=== PATIENT | female | born 1950 | race Caucasian/White ===

== ENCOUNTER 2024-09-04 12:57 | Outpatient (CLI) | payer MEDICARE, SELFPAY ==
--- OUTSIDE RECORDS SUMMARY | 2021-10-27 11:09 | XMS_ITS | Continuity of Care Document ---
Author Organization [facility] Address [address] [facility] [address] [place] [address] Phone Care Team Providers Care Development Manager Name Role Phone Misael Corea DO Unavailable Unavailable Advance Directives Directive Yes / No Effective Date File Name No Information Encounters Encounter Description Practice Location Reason(s) For Visit Diagnoses Date Provider Providers Copied on Encounter [facility], [address], [place], [place], [id number], [place] tel:[phone] /[facility] No Information 2 Anmol Gallegoon. [address] [facility], [address], [place], [place], [id number] , [place]. tel:[phone] Family History Family Member Type Diagnosis Age At Onset No Information Payers Payer name Insurance type Covered constitution party ID Authoriza tion(s) No Information Social History Type Description Quantity Date Captured Comments Sex Female Smoking Status No Information Chief Complaint And Reason For Visit No Information Reason For Referral Reason For Referral No Information History Of Present Illness Encounter Date Complaint History Of Prese nt Illness No Information Functional Status Date Functional Assessmen t No Information Instructions Date Instruction Additional Infor mation No Information Assessments Type Assessment Date No Information Patient Care Teams Name Effective Dates (start - stop) Status Members No Information
--- OUTSIDE RECORDS SUMMARY | 2022-02-21 08:00 | XMS_ITS | Continuity of Care Document ---
Author Organization [facility], [facility] Address [address] [place] [address] Phone Care Team Providers Care Bag Filler Name Role Phone Clarence WATKINS, PhD, Jamie Unavailable Unavailable Advance Directives Directive Yes / No Effective Date File Name No Information Encounters Encounter Description Practice Location Reason(s) For Visit Diagnoses Date Provider Providers Copied on Encounter [facility], [facility], [address] [place] [address], [id number], [place] tel:[phone] [facility] No Information 3 Clarence Ayala. [facility], [facility], [address] [place] [address], [id number], [place]. tel:[phone] Family History Family Member Type Diagnosis Age At Onset No Information Payers Payer name Insurance type Covered alliance party ID Authoriza tion(s) No Information Social [...]
--- OUTSIDE RECORDS SUMMARY | 2023-02-21 09:00 | XMS_ITS | Continuity of Care Document ---
Author Organization [facility] Address [address] [facility] [address] [place] [phone] Phone Care Team Providers Care Electrical Prospecting Supervisor Name Role Phone Sami Batista MD Unavailable [...] Refraction SCODI-Retina Stereo Fundus Photos No Charge ALTERATION HAND Moderate MDM Advance Directives Directive Yes / No Effective Date File Name No Information Encounters Encounter Description Practice Location Reason(s) For Visit Diagnoses Date Provider Providers Copied on Encounter EP Low Moderate MDM [facility] [address], [id number], tel:[phone] [place] Cataract OU (chief complaint) Mixed type age-related cataract, right eye Lester Gallardo. [address] [place] [address], [id number], [place]. tel:[phone] [facility] , [address] [place] [address], [id number], tel:[phone] [place] cataract follow up (chief complaint) Mixed type age-related cataract, right eyeMixed type age-related cataract, left eye Lester Gallardo. [address] [place] [address], [id number], [place]. tel:[phone] Referring Provider: Sami Rush, [address] [place] [address], [id number] . tel:[phone] ALTERATION HAND Moderate MDM [facility] [address], [id number], [place] tel:[phone] [place] Cataract Evaluation (chief complaint) Mixed type age-related cataract, both eyes Lester Gallardo. [address] [place] [address], [id number], [place]. tel:[phone] Referring Provider: Sami Rush, [address] [place] [address], [id number] . tel:[phone] Family History Family Member Type Diagnosis Age At Onset Mother Problem cataract Payers Payer name Insurance type Covered republican ID Authoriza tion(s) No Information Social History [...] t Extraction OD with Dr. Batista at [facility]. Related to Mixed type age-related cataract, right eye Impression/Plan Related to Mixed type age-related cataract, right eye Recommended Cataract Sx OD 1st, OS 2nd with Dr. Batista at [facility]. Related to Mixed type age-related cataract, both [...]
--- OUTSIDE RECORDS SUMMARY | 2024-05-18 13:15 | XMS_ITS ---
Author Organization [facility] Address [address] [place] [address] Care Team Providers Care Silk Crepe Machine Operator Name Role Phone PCP, Does Not Have a Primary Care Provider Unava ilable _Gibran Hartman Unavailable REASON FOR VISIT RASH Encounters Encounter Location Date Provider Diagnosis [facility] Gibran [address] [place] [address] 05/18/2024 Gibran _[facility] PLAN OF TREATMENT No Information
--- OUTSIDE RECORDS SUMMARY | 2024-09-08 13:05 | XMS_ITS | Patient Health Record ---
Author Organization [facility] Address [address] [place] [address] Care Team Providers Care Assistant Site Manager Name Role Phone PCP, Does Not Have a Primary Care Provider Unava ilable _Gibran Hartman Unavailable REASON FOR REFERRAL No Information Encounters Encounter Location Date Provider Diagnosis [facility] [address] [facility] [address] [place] [address] 05/18/2024 [facility] PLAN OF TREATMENT No Information Insurance Providers Payer Name Payer Address Payer Phone Subscriber Number Group Number Insured Name Patient Relationship to Insured Coverage Start Date Coverage End Date MEDICARE [place] [address] [place] [phone] [id number] NATHANIEL PÉREZ Self - patient is the insured
--- OUTSIDE RECORDS SUMMARY | 2024-09-08 13:05 | XMS_ITS | Data Portability ---
Author Organization [place] - [facility] Address [address] [place] [address] Assessment No assessment recorded. Plan of Treatment Reminders Order Date Submit Date Provider Last Modified By Organization Details Last Modified Time Details Appointments None recorded. Lab None recorded. Referral physical therapy back referral 2019 JAVON Not available 1 05:01:06 Procedures None recorded. Surgeries None recorded. Imaging XR, lumbar spine 2019 JAVON Main Office, [address], [place], [address], 0 12:51:30 MRI, lumbar spine, w/o contrast 2019 JAVON Not available 0 11:17:42 Medication Orders naproxen 500 mg tablet 2019 ATHENAFAX Not available 0 12:35:50 Patient TargetsNo targets recorded. Patient Instructions Encounter Date Encounter Id Patient Instructions Last Modified By Organization Details Last Modified Time 12/11/2019 [id number] spondylolysis an d spondylolisthesis: exercises [email or web address] Not available 12/11/2019 12:33:16 Appropriate x-ra ys taken today do not reveal any evidence of fracture or lytic lesion. Spondylotic changes and disc space narrowing is noted. Grade I-II L4-5 stable spondylolisthesis noted. Calcified abdominal aorta noted on the imaging field. Evidence of prior abdominal surgery noted on the imaging field. The patient will likely benefit from activity modification as tolerated. They may find benefit from diligent icing for 20 minutes every 4 to 6 hours for the first 48 hours of acute symptomatology. Otherwise they may consider moist heat to the affected area to try to help reduce muscle spasm and stiffness. The patient is to contact the office and present to the emergency room immediately for any complaints of progressive weakness or bowel/bladder changes. The patient was advised to proceed with an MRI scan of the appropriate region for further diagnostic purposes. Lifestyle modification as it relates to spinal health is of critical importance. This consists of maintaining proper/ideal body weight and blood pressure, smoking cessation, avoiding prolonged sitting throughout the day, and utilizing proper body mechanics/movement patterns with bending, lifting, twisting, and all activities of daily living. The patient should have regular follow up with their primary care physician to monitor all critical aspects of their overall health and wellness such as blood pressure, body weight and body mass index, laboratory markers as needed, and preventive screening measures as directed by their primary care provider. The patient was instructed today on proper home exercises and ergonomic techniques which will hopefully be of value to them. The patient verbalizes understanding of this. Possible side effects with prescribed anti-inflammatory medication include GI upset and ulcer formation, renal damage, rash, elevated cardiovascular risk, organ damage, etc. Discontinue and advise the office if side effect develops. The patient will continue to obey and adhere to all local, state, and federal guidelines regarding the current Covid-19 pandemic, and verbalizes understanding of the treatment and rehabilitation plan and states that they will comply. Follow up in 1-2 weeks or sooner if any new problems or complaints. [email or web address] Not available 12/11/2019 12:33:14 12/29/2019 [id number] lumbar spinal stenosis: care instructions mfishman Not available 12/29/2019 15:40:26 herniated disc: care instructions mfishman Not available 12/29/2019 15:40:26 herniated disc: exercises mfishman Not available 12/29/2019 15:40:26 spondylolysis an d spondylolisthesis: exercises mfishman Not available 12/29/2019 15:40:26 The patient's MR I has been reviewed and discussed in detail. The patient verbalizes understanding of the findings and all questions regarding the results have been answered to the patient's satisfaction. The patient was instructed to follow up with their primary care physician in regards to the abnormal non spinal related finding as noted on their radiologic films for further workup and treatment as needed. The patient verbalizes understanding of this and states that they will comply. The patient will likely benefit from activity modification as tolerated. They may find benefit from diligent icing for 20 minutes every 4 to 6 hours for the first 48 hours of acute symptomatology. Otherwise they may consider moist heat to the affected area to try to help reduce muscle spasm and stiffness. The patient is to contact the office and present to the emergency room immediately for any complaints of progressive weakness or bowel/bladder changes. Generally speaking, reasonable treatment options would include doing nothing/observation, medication, physical therapy, injections, or surgery. I have advised for the patient to comply with a comprehensive physical therapy program for stretching and flexibility training, core strengthening, spinal stabilization, appropriate modalities, and teaching of proper home exercises. The patient was instructed today on proper home exercises and ergonomic techniques which will hopefully be of value to them. The patient verbalizes understanding of this. The patient will continue to obey and adhere to all local, state, and federal guidelines regarding the current Covid-19 pandemic, and verbalizes understanding of the treatment and rehabilitation plan and states that they will comply. I have asked the patient to monitor their symptoms and return to the office after they have completed physical therapy or sooner if any new problems or complaints. [email or web address] Not available 12/29/2019 15:40:00 Reason for Referral Referring Physician: Mook gillespie, [facility] Encounter Date: 12/29/2019 Results Created Date Observation Date Name Description Value Unit Range Abnormal Flag Note LastModifiedBy Organization Detail LastModifiedTime 12/19/19 20 12/18/2019 MRI, lumba r spine , w/o contr ast No observ ation record ed. [email or web address] [address] [facility] [address], [place], [address], 12/25/2019 13:41:46 Result Notes None recorded. Problems Name Problem SNOMED Code Status Onset Date Resolution Date Notes Provider Name and Address Organization Details Recorded Time Spondylolisthe sis 562734677 Active 2019 Mook Lang, [address], [place], [address] , [facility] 0 10:03:24 Prolapsed lumbar intervertebral disc 082055182 Active 2019 Mook Lang, DO [address] [place] [address], [phone], [facility] 0 10:05:05 Spinal stenosis of lumbar region 00395827 Active 2019 Mook Lang, DO [address] [place] [address], [phone], [facility] 0 10:05:07 Problem Notes None recorded. Medical Equipment None Reported. Allergies No known drug allergies Medications Name Sig Start Date Stop Date Status Note LastModified by Organization Details LastModified Time doxycycline hyclate 100 mg capsule TK ONE C PO Q 12 H FOR 10 DAYS active Not Available Not Available No t Available ketoconazole 2 % shampoo active Not Available Not Available Not Available cephalexin 250 mg capsule TK 1 C PO QID FOR 10 DAYS active Not Available Not Available No t Available prednisone 20 mg tablet TK 2 TS PO QD FOR 5 DAYS active Not Available Not Available No t Available sulfamethoxaz ole 800 mg-trimethopr im 160 mg tablet TAKE ONE TABLET BY MOUTH EVERY 12 HOURS active Not Available Not Available No t Available triamcinolone acetonide 0.1 % topical cream APPLY A THIN LAYER TO THE AFFECTED AREA(S) TOPICALLY TWO TIMES A DAY active Not Available Not Available No t Available naproxen 500 mg tablet Take 1 tablet twice a day by oral route as needed for 30 days. 2019 active Not Available Not Available Not Avai lable Vitals Date Recorded Body height Body weight Heart rate Systolic And Diastolic Provider Name and Address Organization Details Last Updated DateTime 12/11/2019 160.02 cm 03380.32 g 90 /min 143/95 mm[Hg] Mook Lang, [address] [place] [address], [phone] [place] [address] [facility] 12/11/2019 12:23:30 Date Recorded Body height Body temperature Body weight Provider Name and Address Organization Details Last Updated DateTime 12/29/2019 160.02 cm 96.4 [degF] 29726.32 g Mook Lang, [address] [place] [address], [phone], [facility] 12/29/2019 15:28:32 Social History Question Answer Notes LastModified by Organizat ion Details LastModified Time Tobacco Smoking Status Never Smoker Mook CalixQueenie Lang, DO [address] [facility], [place], [address], [facility] - [facility] 12/11/2019 12:22:59 Which Illicit Or Recreational Drugs Have You Used? None Information not available 12/11/2019 What Was The Date Of Your Most Recent Tobacco Screening? 12/11/2019 Information not available 12/11/2019 Sex: Unknown Functional Status Question Answer Note LastModified by Organization D etails LastModified Time What is your level of alcohol consumption? None Information not available 12/11/2019 Are you currently employed? Yes Information not available 12/11/2019 Are you able to care for yourself independently? Yes Information not available 12/11/2019 Mental Status None recorded. Family History Relationship Description Onset Age of this Age Resolved Age Notes LastModified by Organization Details LastModified Time Father No current problems or disability [email or web address] Not available 12/10 12:22:57 Mother No current problems or disability [email or web address] Not available 12/10 12:22:57 Medical History No medical history recorded. Gynecological HistoryNo gynecological history recorded. Obstetrics History GPAL:G 0 P 0 0 0 0 Past Encounters Encounter ID Performer Location Encounter Start Date Encounter Closed Date Diagnosis/Indication Diagnosis SNOMED-CT Code Diagnosis ICD10 Code Diagnosis Note [id number] Mook Lang, DO MAIN OFFICE [address] [place] [address] 12/11/2019 10:51:52 12/11/2019 14:51:55 Degeneration of lumbar intervertebral disc 35873914 M51.36 Lumbar spondylosis 99329 0009 M47.896 Spondylolisthesis 736735 003 M43.16 [id number] Mook iFfiQueenie Lang DO MAIN OFFICE [address] [place] [address] 12/29/2019 15:23:56 12/30/2019 09:41:16 Degeneration of lumbar intervertebral disc 66388604 M51.36 Lumbar spondylosis 61794 0009 M47.896 Spondylolisthesis 874731 003 M43.16 Prolapsed lumbar intervertebral disc 382473219 M51.26 Spinal irma nosis of lumbar region 71133065 M48.061 Health Concerns Section Related Observation LastModified by Organization Detai ls LastModified Time None Recorded Concern Status LastModified by Organization Details LastModified Time None Recorded Advance Directives Directive None Recorded Payers Insurance Date Sequence Insurance Name Policy Number Policy Yu Covered Member ID Yu Member ID Guarantor Name 12/29/2019 1 [employer] Radha L Irons [id number] Radha Irons 12/29/2019 1 [id number] Radha L Irons [id number] Radha Irons 12/29/2019 [employer] (MEDICARE REPLACEMENT/ ADVANTAGE - PPO) Radha L Irons [id number] Radha Irons OBGyn Episode No OBEpisode recorded.
--- OUTSIDE RECORDS SUMMARY | 2024-09-08 13:05 | XMS_ITS | Data Portability ---
Author Organization [facility] ADMIN Address [address] [place] [address] Assessment No assessment recorded. Plan of Treatment Reminders Order Date Submit Date Provider Last Modified By Organization Details Last Modified Time Details Appointments OV EST 15 025 08:30AM XAVIER BUTLER Not available Not available Not available Lab None record ed. Referral None record ed. Procedures None record ed. Surgeries None record ed. Imaging None record ed. Medication Orders None record ed. Patient TargetsNo targets recorded. Patient InstructionsNo instructions recorded. Reason for Referral None Reported. Results Created Date Observation Date Name Description Value Unit Range Abnormal Flag Note LastModifiedBy Organization Detail LastModifiedTime 12/20/19 24 12/19/2023 audio gram No observ ation record ed. BARCODE Not Available 2023 08:53:38 Result Notes None recorded. Problems Name Problem SNOMED Code Status Onset Date Resolution Date Notes Provider Name and Address Organization Details Recorded Time Sensorineural hearing loss 35202123 Active 2023 XAVIER BUTLER [address] [facility], [place], [address] , [facility] & [place] 12:33:56 Problem Notes None recorded. Medical Equipment None Reported. Medications Name Sig Start Date Stop Date Status Note LastModified by Organization Details LastModified Time azithromycin 250 mg tablet TAKE 2 TABLETS BY MOUTH ON DAY 1, THEN TAKE 1 TABLET DAILY ON DAYS 2-5 active Not Available Not Available No t Available benzonatate 200 mg capsule TAKE 1 CAPSULE BY MOUTH EVERY 8 HOURS NEEDED active Not Available Not Available No t Available valacyclovir 1 gram tablet TAKE 1 TABLET BY MOUTH THREE TIMES DAILY active Not Available Not Available Not Available meloxicam 15 mg tablet TAKE 1 TABLET BY MOUTH ONCE DAILY active Not Available Not Available No t Available prednisone 20 mg tablet TAKE 3 TABLETS BY MOUTH ONCE DAILY active Not Available Not Available No t Available ciprofloxaci n 500 mg tablet TAKE 1 TABLET BY MOUTH TWICE DAILY active Not Available Not Available No t Available amoxicillin 875 mg tablet TAKE 1 TABLET BY MOUTH EVERY 12 HOURS active Not Available Not Available No t Available gabapentin 300 mg capsule TAKE 1 CAPSULE BY MOUTH THREE TIMES DAILY active Not Available Not Available Not Available raloxifene 60 mg tablet TAKE 1 TABLET BY MOUTH ONCE DAILY active Not Available Not Available No t Available ergocalcifer ol (vitamin D2) 1,250 mcg (50,000 unit) capsule TAKE 1 CAPSULE BY MOUTH ONCE A WEEK active Not Available Not Available No t Available methylpredni solone 4 mg tablets in a dose pack TAKE BY MOUTH DIRECTED ON INSIDE OF PACKAGE active Not Available Not Available No t Available labetalol 100 mg tablet TAKE 1 TABLET BY MOUTH TWICE DAILY active Not Available Not Available No t Available cefdinir 300 mg capsule TAKE 1 CAPSULE BY MOUTH TWICE DAILY active Not Available Not Available No t Available amoxicillin 500 mg-potassium clavulanate 125 mg tablet TAKE 1 TABLET BY MOUTH TWICE DAILY active Not Available Not Available No t Available moxifloxacin 0.5 % eye drops INSTILL 1 DROP INTO LEFT EYE BY OPHTHALMIC ROUTE 4 TIMES PER DAY active Not Available Not Available No t Available bupropion HCl XL 300 mg 24 hr tablet, extended release TAKE 1 TABLET BY MOUTH IN THE MORNING. DO NOT CRUSH, CHEW, OR SPLIT. active Not Available Not Available No t Available duloxetine 20 mg capsule,jojo yed release TAKE 1 CAPSULE BY MOUTH TWICE DAILY IN THE MORNING AND AT BEDTIME .DO NOT CRUSH OR CHEW active Not Available Not Available No t Available Repatha SureClick 140 mg/mL subcutaneous pen injector INJECT 140 MG UNDER THE SKIN EVERY 14 (FOURTEEN) DAYS. active Not Available Not Available No t Available Nexlizet 180 mg-10 mg tablet TAKE 1 TABLET BY MOUTH ONCE DAILY active Not Available Not Available No t Available Vitals None Recorded Social History None recorded. Functional Status None recorded. Mental Status None recorded. Family History Nothing Reported. Medical History No medical history recorded. Gynecological HistoryNo gynecological history recorded. Obstetrics History GPAL:G 0 P 0 0 0 0 Past Encounters Encounter ID Performer Location Encounter Start Date Encounter Closed Date Diagnosis/Indication Diagnosis SNOMED-CT Code Diagnosis ICD10 Code Diagnosis Note [id number] XAVIER BUTLER [facility] [place] [address] [address] [facility], [address] [place] [address] 12/19/2023 11:50:41 12/19/2023 12:13:59 Sensorineural hearing loss 04146586 H90.3 [id number] XAVIER BUTLER [facility] [place] [address] [address] [facility], [place] [address] 01/02/2024 08:31:58 01/02/2024 08:51:16 Sensorineural hearing loss 54717889 H90.3 [id number] XAVIER BUTLER [facility] [address], [place] [address] 8 07/16/2024 14:47:55 07/16/2024 15:07:37 Sensorineural hearing loss 04797021 H90.3 [id number] XAVIRE BUTLER [facility] [place] [address] 08/27/2024 11:04:39 08/27/2024 11:17:10 Sensorineural hearing loss 25560342 H90.3 Health Concerns Section Related Observation LastModified by Organization Detai ls LastModified Time None Recorded Concern Status LastModified by Organization Details LastModified Time None Recorded Advance Directives Directive None Recorded Payers Insurance Date Sequence Insurance Name Policy Number Policy Yu Covered Member ID Yu Member ID Guarantor Name 12/19/2023 [employer] Nathaniel Irons NATHANIEL IRONS NATHANIEL IRONS Nathaniel Irons OBGyn Episode No OBEpisode recorded.
--- OUTSIDE RECORDS SUMMARY | 2024-09-08 13:05 | XMS_ITS | Encounter Summary ---
Author Organization [facility] Health Address [address] [place] [address] Care Team Providers Care Engine Inspector Name Role Phone Unavailable Primary Care Provider Unavailabl e Prior Encounters Date Type Department Care Team Description 03/03/2019 Converted CPS Chart Documents [facility] [address] [place] [phone] <No scans attached> 03/03/2019 Converted 13x Documents [facility] [address] [place] [phone] <No scans attached> Plan of Treatment Not on file Procedures Procedure Name Priority Date/Time Associated Diagnosis Comments MISSED APPOINTMENT Routine 02/19/2018 2: 00 AM 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 2 DO AMALGAM 2 SURFACE Routine 8 2:00 AM CDT 8 ENDODONTIC THERAPY, ANTERIOR TOOTH (EXCLUDING FINAL PENTECOSTAL) Routine 08/03/2017 2:00 AM CDT 29 CROWN PFM POST Routine 08/03/2017 2:0 0 AM CDT 3 CROWN PFM POST Routine 08/03/2017 2:00 AM CDT COMPREHENSIVE ORAL EVALUATION - NEW OR ESTABLISHED PATIENT Routine 08/03/2017 2:00 AM CDT PANORAMIC RADIOGRAPHIC IMAGE Routine 08/03/2017 2:00 AM CDT INTRAORAL - COMPREHENSIVE SERIES OF RADIOGRAPHIC IMAGES Routine 08/03/2017 2:00 AM CDT INTRAORAL PHOTO Routine 08/03/2017 2:00 AM CDT INTRAORAL PHOTO Routine 08/03/2017 2:00 AM CDT INTRAORAL PHOTO Routine 08/03/2017 2:00 AM CDT INTRAORAL PHOTO Routine 08/03/2017 2:00 AM CDT 8 DIFL COMPOSITE FILLING Routine 018 2:00 AM CDT 28 MO COMPOSITE FILLING Routine 08/04/19 18 2:00 AM CDT 27 DFL COMPOSITE FILLING Routine 018 2:00 AM CDT 11 DF COMPOSITE FILLING Routine 08/04/19 18 2:00 AM CDT 10 ML COMPOSITE FILLING Routine 08/04/19 18 2:00 AM CDT 9 DL COMPOSITE FILLING Routine 8 2:00 AM CDT 6 DF COMPOSITE FILLING Routine 8 2:00 AM CDT Visit Diagnoses Not on file
--- OUTSIDE RECORDS SUMMARY | 2024-09-08 13:05 | XMS_ITS | Continuity of Care Document ---
Author Organization [facility] & [place], [facility] Address [address] [place] [address] Assessment No assessment recorded. Plan of Treatment [...] instructions recorded. Reason for Referral None Reported. Problems Name Problem SNOMED Code Status Onset Date Resolution Date Notes Provider Name and Address Organization Details Recorded Time Sensorineural hearing loss 34691764 Active 2023 XAVIER BUTLER [address] [facility], [place], [address] , [facility] & [place] 4 12:33:56 Problem Notes None recorded. Medical Equipment [...] SNOMED-CT Code Diagnosis ICD10 Code Diagnosis Note [id number] XAVIER BUTLER [facility] [facility], [place] [address] 08/27/2024 11:04:39 08/27/2024 11:17:10 Sensorineural hearing loss 19791597 H90.3 Health Concerns Section Related Observation LastModified by Organization Detai ls LastModified Time None Recorded Concern Status LastModified by Organization Details LastModified Time None Recorded Payers Encounter Date Sequence Insurance Name Policy Number Policy Yu Covered Member ID Yu Member ID Guarantor Name 08/27/2024 [employer] Nathaniel Irons NATHANIEL IRONS NATHANIEL IRONS Nathaniel Irons OBGyn Episode No OBEpisode recorded.
--- OUTSIDE RECORDS SUMMARY | 2024-09-08 13:05 | XMS_ITS | Data Portability ---
Author Organization [place] - [facility] LILIA Lindsey, NFS [facility] Address [address] [place] [address] Care Team Providers Care Advertising Copywriter Name Role Phone LEN LEY Referring Provider GERONIMO DIAZ Primary Care Provider [phone] Assessment Encounter Date Assessment Date Assessment LastModified by Organization Details LastModified Time 07/18/2023 07/18/2023 S/P CE Toric IOL w/ Femto right eye (07/17/23) -Doing well - lens centered -Lotemax, moxifloxacin, prolensa QID -No heavy lifting. Keep the eye dry. Sunglasses during day. Eye shield at night Cataract, Left eye -To discuss surgical plan next visit Posterior Vitreous Detachment, Right eye -Recommend observation Meibomian Gland Dysfunction, bilateral Warm compresses, lid scrubs as needed Upper eyelid dermatochalasis , bilateral upper eyelids -Not bothersome to patient observe Note to Dr. Diaz RTC: As scheduled. Scribe: Alejandra Not available 07/18/2023 13:59:23 07/25/2023 07/25/2023 S/P CE Toric IOL w/ Femto right eye (07/17/23) -Doing well - lens centered -Stop moxifloxacin. Lotemax, prolensa TID - taper by 1 drop weekly. -No heavy lifting. Keep the eye dry. Sunglasses during day. Eye shield at night Cataract, Left eye -Glare 20/40 OU previously -Affecting activities of daily living. -Discussed femto / traditional, as well as lens options. Patient interested in Toric intraocular lens. Discussed correction may be needed for best vision -Contact lens wear: N -Post refractive surgery (LASIK / PRK / RK): N -Amblyopia / lazy eye / strabismus surgery: N -History eye trauma: N -Alpha-markie use: N -Pseudoexfoliat ion: N -Corneal scar: N -Guttae: N -K Óscar (06/22/23): Regular OU. 0.95/0.73D -Dominant eye: Left -Drops ordered: Yes Surgical plan: -Eye: LEFT -Case: Cataract extraction + IOL implantation -Time allotment: 30mins -Anesthesia: Topical -Lens: Toric -Target: Distance -Femto: Yes -Additional: - Posterior Vitreous Detachment, Right eye -Recommend observation Meibomian Gland Dysfunction, bilateral Warm compresses, lid scrubs as needed Upper eyelid dermatochalasis , bilateral upper eyelids -Not bothersome to patient observe Note to Dr. Diaz RTC: OR Scribe: Gabriella [email or web address] Not available 07/25/2023 11:18:13 08/01/2023 08/01/2023 S/P CE Toric IOL w/ Femto right eye (07/17/23), left eye (07/31/23) -Doing well - lenses centered -Lotemax, prolensa, moxifloxacin QID left eye -Lotemax taper in right eye -No heavy lifting. Keep the eye dry. Sunglasses during day. Eye shield at night Posterior Vitreous Detachment, Right eye -Recommend observation Meibomian Gland Dysfunction, bilateral Warm compresses, lid scrubs as needed Upper eyelid dermatochalasis , bilateral upper eyelids -Not bothersome to patient observe Note to Dr. Diaz RTC: 4-6wks post op, MRx, DFE Scribe: Gabriella Not available 08/01/2023 11:25:03 08/29/2023 08/29/2023 S/P CE Toric IOL w/ Femto right eye (07/17/23), left eye (07/31/23) -Doing well - lenses centered. MRx released Posterior Vitreous Detachment, both eyes -Recommend observation Meibomian Gland Dysfunction, bilateral -Warm compresses, lid scrubs as needed Upper eyelid dermatochalasis , bilateral upper eyelids -Not bothersome to patient observe Note to Dr. Diaz RTC: PRN w/ JULIAN Scribe: Winsome/Gabriella [email or web address] Not available 08/29/2023 15:14:04 09/04/2023 09/04/2023 S/P CE Toric IOL w/ Femto right eye (07/17/23), left eye (07/31/23) -Doing well - lenses centered. MRx released Posterior Vitreous Detachment, OU - Presented 09/04/23 with acute flashes/floater s, flashes resolved - Mac OCT 09/04/23: good fovea contour OU - No evidence of vitreous pigment or hemorrhage - No evidence of retinal tears or detachment on posterior exam - Discussed signs/symptoms of retinal detachment, with strict call-back instructions for worsening symptoms Meibomian Gland Dysfunction, bilateral - Preservative free tears QID OU - Warm compresses, lid scrubs as needed Upper eyelid dermatochalasis , bilateral upper eyelids -Not bothersome to patient observe RTC: 1 month DFE OS w/ Dr. Buchanan Scribe: Dmitriy [email or web address] Not available 09/04/2023 15:35:09 Plan of Treatment Reminders Order Date Submit Date Provider Last Modified By Organization Details Last Modified Time Details Appointments None recorded. Lab None recorded. Referral None recorded. Procedures None recorded. Surgeries None recorded. Imaging optical coherence tomogram, macula 2023 [email or web address] In-Office Order, Internal Use Only DO Not Attach Compendium DO Not Attach Compendium, Do Not Delete/merge, [id number] 4 15:48:43 Medication Orders Lotemax SM 0.38 % eye gel drops 2023 [facility], [address], [place] [facility], [place], [id number], 4 11:19:46 moxifloxaci n 0.5 % eye drops 2023 [facility], [address], [place] [facility], [place], [id number], 4 11:19:42 Prolensa 0.07 % eye drops 2023 024 JAVON [facility], [address], [place] [address], [place], [place], [id number], 4 11:19:44 Patient TargetsNo targets recorded. Patient InstructionsNo instructions recorded. Reason for Referral None Reported. Results Created Date Observation Date Name Description Value Unit Range Abnormal Flag Note LastModifiedBy Organization Detail LastModifiedTime 06/22/19 24 intra ocula r lens biome try No observ ation record ed. In-House Results For Internal Use Only, Do Not Delete/merge, [id number] 06/22/2023 12:21:21 07/11/19 24 A-sca n; with intra ocula r lens power calcu latio n (PROC ) No observ ation record ed. [email or web address] In-House Results For Internal Use Only, Do Not Delete/merge, [id number] 07/11/2023 17:33:39 07/12/19 24 A-sca n; with intra ocula r lens power calcu latio n (PROC ) No observ ation record ed. [email or web address] Not Available 2023 12:56:40 09/04/19 24 optic al coher ence tomog [email or web address] a No observ ation record ed. [email or web address] In-Office Order Internal Use Only DO Not Attach Compendium DO Not Attach Compendium, Do Not Delete/merge, [id number] 09/04/2023 15:24:20 Result Notes None recorded. Problems Name Problem SNOMED Code Status Onset Date Resolution Date Notes Provider Name and Address Organization Details Recorded Time Hypertensive disorder 04178630 Active 2023 ASHLEE Mclean [facility] [place] 4 08:47:44 Hyperlipidemia 17977953 Active 2023 Courtney guillen [facility] [place] 4 14:35:54 Problem Notes None recorded. Procedures Surgical History Date Name Laterality Status Provider Name and Address Organization Details Recorded Time cataract surgery completed Gabriella Murray [facility] [place] 07/30/2023 10:19:43 Imaging Results None recorded. Procedure Notes None recorded. Medical Equipment None Reported. Allergies Allergen ID Allergen Name Allergen Category Reaction Reaction Severity Criticality Documentation Date Start Date Code Code System Note Provider Name and Address Organization Details Recorded Time 50110414 doxycycli ne Not available anaphylax is facial swelling severe moderate Not available 06/08/2023 3640 RxNorm ASHLEE Mclean [facility] [place] 08:47:19 Medications Name Sig Start Date Stop Date Status Note LastModified by Organization Details LastModified Time buspirone 5 mg tablet TAKE 1 TABLET BY MOUTH TWICE DAILY active Not Available Not Available No t Available labetalol 200 mg tablet TAKE 1 TABLET BY MOUTH TWICE DAILY active Not Available Not Available No t Available meloxicam 15 mg tablet active Not Available Not Available No t Available prednisone 20 mg tablet active Not Available Not Available Not Available amoxicillin 875 mg tablet TAKE 1 TABLET BY MOUTH EVERY 12 HOURS active Not Available Not Available No t Available raloxifene 60 mg tablet active Not Available Not Available Not Available ergocalcifer ol (vitamin D2) 1,250 mcg (50,000 unit) capsule TAKE 1 CAPSULE BY MOUTH ONCE A WEEK active Not Available Not Available No t Available labetalol 100 mg tablet active Not Available Not Available Not Available ezetimibe 10 mg tablet TAKE 1 TABLET BY MOUTH ONCE DAILY active Not Available Not Available No t Available moxifloxacin 0.5 % eye drops INSTILL 1 DROP INTO LEFT EYE BY OPHTHALMIC ROUTE 4 TIMES PER DAY active Not Available Not Available No t Available Prolensa 0.07 % eye drops INSTILL 1 DROP TO THE LEFT EYE BY OPHTHALMIC ROUTE ONCE DAILY START DAY PRIOR TO SURGERY, CONTINUE DAY OF SURGERY AND FOR NEXT 2 WEEKS. active Not Available Not Available No t Available Lotemax SM 0.38 % eye gel drops INSTILL 1 DROP INTO LEFT EYE(S) BY OPHTHALMIC ROUTE 4 TIMES PER DAY BEGINNING THE DAY BEFORE SURGERY AND TAPER active Not Available Not Available No t Available Nexlizet 180 mg-10 mg tablet TAKE 1 TABLET BY MOUTH ONCE DAILY active Not Available Not Available No t Available Vitals Date Recorded Body height Provider Name an d Address Organization Details Last Updated DateTime 07/18/2023 160.02 cm ASHLEE Wilhelm [facility] [place] 07/18/2023 13:36:54 Date Recorded Body height Provider Name an d Address Organization Details Last Updated DateTime 07/25/2023 160.02 cm Rashaun Jostin [facility] [place] 07/25/2023 10:47:06 Date Recorded Body height Provider Name an d Address Organization Details Last Updated DateTime 08/29/2023 160.02 cm Courtney Nguyensoraya [facility], [place] 08/29/2023 14:27:57 Date Recorded Body height Provider Name an d Address Organization Details Last Updated DateTime 09/04/2023 160.02 cm Jyotsna Michaelle [facility] [place] 09/04/2023 14:46:58 Social History None recorded. Functional Status Question Answer Note LastModified by Organization D etails LastModified Time What is your level of alcohol consumption? None [email or web address] Information not available 06/08/2023 Mental Status None recorded. Family History Relationship Description Onset Age of this Age Resolved Age Notes LastModified by Organization Details LastModified Time Father No current problems or disability [email or web address] Not available 05/14 08:47:46 Mother No current problems or disability [email or web address] Not available 05/14 08:47:46 Medical History Condition Response Coronary Artery Disease N Thyroid Disease N Blood disorders N Depression N Lung Disease N Genitourinary Disease N Fever Blisters N Gastrointestinal Disease N Anxiety Disorder N Arthritis N Head Injury/Concussion N Cancer N Stroke N Seasonal allergies N Celiac disease N High Cholesterol N Neurologic Disorder N Liver Disease N Psychiatric/Mental Health Condition N Headaches N Ambloypia N Leukemia/Lymphoma N Herpes N Diabetic Eye Disease N Multiple Sclerosis N Meningitis N Diabetes N Eye Trauma N Double Vision N Ocular trauma N Sleep Apnea N Cirrhosis N Heart Disease N Hypertension Y Flomax Use Past or Present N Gynecological HistoryNo gynecological history recorded. Obstetrics History GPAL:G 0 P 0 0 0 0 Past Encounters Encounter ID Performer Location Encounter Start Date Encounter Closed Date Diagnosis/Indication Diagnosis SNOMED-CT Code Diagnosis ICD10 Code Diagnosis Note [id number] Kev Buchanan MD NFS [facility] [address] [address] [place] [address] 06/08/2023 07:55:55 06/08/2023 09:30:00 Nuclear sclerotic cataract 947485138 H25.13 Posterior vitreous detachment 136578499 H43.811 Meibomian gland dysfunction 419118875 H02.88B H02.88A Excess skin of eyelid 24 3617501 H02.834 H02.831 Blurring o f visual image 283538420 H53.8 [id number] Kev Buchanan MD [address] [place] [address] 06/22/2023 10:55:45 06/22/2023 13:21:20 Blurring of visual image 174227152 H53.8 Nuclear sc lerotic cataract 735832625 H25.13 Posterior vitreous detachment 165135887 H43.811 Meibomian gland dysfunction 588989371 H02.88B H02.88A Excess skin of eyelid 24 1453505 H02.834 H02.315 [id number] Kev Buchanan MD [facility] [address] [place] [address],[address] [place] [address] 07/18/2023 13:20:32 07/18/2023 14:01:47 Nuclear sclerotic cataract 633036015 H25.12 Posterior vitreous detachment 592533361 H43.811 Meibomian gland dysfunction 875369326 H02.88B H02.88A Excess skin of eyelid 24 1480188 H02.834 H02.831 Pseudophakia 26047340 Z9 6.1 [id number] Kev Buchanan MD [facility] [address] [place] [address] 07/25/2023 10:41:13 07/25/2023 11:20:03 Pseudophakia 24100752 Z96.1 Nuclear sc lerotic cataract 306873055 H25.12 Posterior vitreous detachment 868197406 H43.811 Meibomian gland dysfunction 399834155 H02.88B H02.88A Excess skin of eyelid 24 6548801 H02.834 H02.602 [id number] Kev Buchanan MD [address] [place] [address] 08/01/2023 10:49:30 08/01/2023 11:30:56 Pseudophakia 03519478 Z96.1 Posterior vitreous detachment 358942901 H43.811 Meibomian gland dysfunction 381941384 H02.88B H02.88A Excess skin of eyelid 24 1068265 H02.834 H02.730 [id number] Kev Buchanan MD NFS [facility] [address] [facility] [address] [place] [address] 08/29/2023 14:22:01 08/29/2023 15:06:09 Pseudophakia 91285654 Z96.1 Posterior vitreous detachment 606138888 H43.813 Meibomian gland dysfunction 922041193 H02.88B H02.88A Excess skin of eyelid 24 8537538 H02.834 H02.657 [id number] COBY MORFIN MD NFS [facility] [address] [address] 09/04/2023 14:36:45 09/04/2023 15:48:43 Pseudophakia 68348439 Z96.1 Posterior vitreous detachment 649948038 H43.813 Meibomian gland dysfunction 435826496 H02.88B H02.88A Excess skin of eyelid 24 6293213 H02.834 H02.831 Health Concerns Section Related Observation LastModified by Organization Detai ls LastModified Time None Recorded Concern Status LastModified by Organization Details LastModified Time None Recorded Advance Directives Directive None Recorded Payers Insurance Date Sequence Insurance Name Policy Number Policy Yu Covered Member ID Yu Member ID Guarantor Name 05/09/2023 1 [employer] (PPO) Radha L Irons [id number] Mitzi Irons 05/23/2023 1 [employer] (MEDICARE REPLACEMENT/ ADVANTAGE - PPO) [id number] Mitzi Irons [id number] Mitzi Irons 10/09/2023 [facility] Mitzi Irons [id number] Mitzi Irons 10/09/2023 1 [employer] (MEDICARE REPLACEMENT/ ADVANTAGE - HMO) Radha L Irons [id number] Mitzi Irons OBGyn Episode No OBEpisode recorded.
--- OUTSIDE RECORDS SUMMARY | 2024-09-08 13:05 | XMS_ITS | Data Portability ---
Author Organization [facility] [employer] [facility] Address [address] [place] [address] Assessment Encounter Date Assessment Date Assessment LastModified by Organization Details LastModified Time 10/06/2023 10/06/2023 Negative POC testing for COVID/influenza today. Increase oral fluids. Recommended mucinex OTC per package instructions. Tylenol or ibuprofen OTC per package instructions as needed for fever. Follow up with PCP in [place] in the next month or follow up here for fasting labs when patient returns to [place]. Seek treatment if worsening or not improving and as needed. [email or web address] Not available 10/06/2023 12:50:04 Plan of Treatment Reminders Order Date Submit Date Provider Last Modified By Organization Details Last Modified Time Details Appointments None recorded. Lab rapid SARS CoV 2 Ag, QL, [place], upper respiratory specimen [address], [address], 4 18:12:40 rapid flu (A+B) 2023 024 [facility], [address] [place] [address], [phone], 4 18:12:18 Referral None recorded. Procedures None recorded. Surgeries None recorded. Imaging None recorded. Medication Orders benzonatate 200 mg capsule 2023 024 [facility], [address] [place] [address], [address], 17:33:46 azithromyci n 250 mg tablet 2023 024 [facility], [address] [place] [address], [address], 17:33:45 Patient TargetsNo targets recorded. Patient InstructionsNo instructions recorded. Reason for Referral None Reported. Results Created Date Observation Date Name Description Value Unit Range Abnormal Flag Note LastModifiedBy Organization Detail LastModifiedTime 10/08/1910/08/2023 rapid flu (A+B) Flu A negati ve Not Available [address], [address], 10/06/2023 12:43:20 10/08/1910/08/2023 rapid flu (A+B) Flu B negati ve Not Available [address], [address], 10/06/2023 12:43:20 10/08/19 24 10/08/2023 rapid SARS CoV 2 Ag, QL, [place], upper respi rator y speci men SARS CoV Ag negati ve Not Available [address], [address], 10/06/2023 12:43:13 Result Notes None recorded. Problems Name Problem SNOMED Code Status Onset Date Resolution Date Notes Provider Name and Address Organization Details Recorded Time Hypertensive disorder 72421208 Active 2023 Marjorie Mclaughlin NP [address] [place], [address], [facility] [employer] 12:48:29 Hyperlipidemia 58992008 Active 2023 Marjorie Mclaughlin NP [address] [place], [address], [facility] [employer] 12:48:27 Cough 25334387 Active 2023 Marjorie Mclaughlin NP [address] [place], [address], [employer] 12:48:32 Acute bronchitis 15612779 Active 2023 Marjorie Mclaughlin NP [address] [place], [address], [employer] 12:59:26 Puncture wound of hand 778943746 Active 2023 Kayla [employer] 17:13:33 Problem Notes None recorded. Procedures Surgical History Date Name Laterality Status Provider Name and Address Organization Details Recorded Time 03/16/19 23 Most Recent Mammogram completed Kaylasaravanan Villegas [employer] 10/06/2023 12:12:19 Back Surgery completed Kayla [employer]. 10/06/2023 12:12:20 Caesarean Section completed Kayla [employer]. 10/06/2023 12:12:20 Cataract Surgery completed [employer] 10/06/2023 12:12:20 Hysterectomy completed Kayla [employer]. 10/06/2023 12:12:20 Total Hysterectomy completed [employer]. 10/06/2023 12:12:20 Imaging Results None recorded. Procedure Notes None recorded. Medical Equipment None Reported. Allergies Allergen ID Allergen Name Allergen Category Reaction Reaction Severity Criticality Documentation Date Start Date Code Code System Note Provider Name and Address Organization Details Recorded Time 99594 doxycycli ne Not available anaphylax is severe Not available 10/06/2023 3640 RxNorm Kayla guillen, [employer] 12:22:25 Medications Name Sig Start Date Stop Date Status Note LastModified by Organization Details LastModified Time azithromycin 250 mg tablet TAKE 2 TABLETS BY MOUTH ON DAY 1, THEN TAKE 1 TABLET DAILY ON DAYS 2-5 11/15 completed Not Available Not Available Not Available benzonatate 200 mg capsule TAKE ONE CAPSULE BY MOUTH THREE TIMES DAILY FOR cough 11/15 completed Not Available Not Available Not Available labetalol 100 mg tablet Take 1 tablet twice a day by oral route. active Not Available Not Available No t Available Nexlizet 180 mg-10 mg tablet Take 1 tablet every day by oral route. active Not Available Not Available No t Available Vitals Date Recorded Body height Body mass index (BMI) Body weight Body temperature Heart rate Oxygen saturation Oxygen saturation in Arterial blood by Pulse oximetry Systolic And Diastolic Provider Name and Address Organization Details Last Updated DateTime 160.02 cm 37.4 kg/m2 57912.9 9 g 98.6 [degF] 75 /min 97 % 97 % 113/71 mm[Hg] Kaylasaravanan Villegas [employer] 12:22:07 Date Recorded Body height Body mass index (BMI) Body weight Heart rate Oxygen saturation Oxygen saturation in Arterial blood by Pulse oximetry Systolic And Diastolic Provider Name and Address Organization Details Last Updated DateTime 4 160.02 cm 38.4 kg/m2 55826.5 4 g 86 /min 98 % 98 % 134/74 mm[Hg] Kayla Egany [employer] 17:12:38 Social History Question Answer Notes LastModified by Organizat ion Details LastModified Time Tobacco Smoking Status Former Smoker Kayla Villalpandomadie guillen [employer] 10/06/2023 12:12:20 Do You Have An Advance Directive? No Information not available 10/06/2023 Is Your Home Air Conditioned? Yes Information not available 10/06/2023 If You Are , What Was Your Level Of Alcohol Consumption Prior To ? None Information not available 10/06/2023 Do You Wear A Helmet When Biking? Yes Information not available 10/06/2023 Are You Blind Or Do You Have Difficulty Seeing? No Information not available 10/06/2023 What Is Your Level Of Caffeine Consumption? Occasional Information not available 10/06/2023 What Type Of Facility Specialist Do You Use? None Information not available 10/06/2023 Are You Deaf Or Do You Have Serious Difficulty Hearing? No Information not available 10/06/2023 What Type Of Diet Are You Following? VEGETARIAN Information not available 10/06/2023 Who Is Your Employer? [employer] Information not available 10/06/2023 How Many Days Of Moderate To Strenuous Exercise, Like A Brisk Walk, Did You Do In The Last 7 Days? 4 Information not available 10/06/2023 Have There Been Any Changes To Your Family Or Social Situation? No Information no t available 10/06/2023 When Did You Quit Smoking? 16+yearssincel astcigarette Information not available 10/06/2023 Are There Any Guns Present In Your Home? No Information not available 10/06/2023 Which Of Your Hands Is Dominant? Right Information not available 10/06/2023 What Is Your Home Situation? Other Information not available 10/06/2023 Do You Have A Medical Power Of Religious Education Coordinator? No Information not available 10/06/2023 What Was The Date Of Your Most Recent Tobacco Screening? 11/16/2023 Information not available 11/16/2023 Are There Any Occupational Health Risks Where You Work? Yes Information not available 10/06/2023 What Is Your Current Pack Years? 10packyears Information not available 10/06/2023 Do You Have Any Pets? No Information not available 10/06/2023 What Is Your Relationship Status? Single Information not available 10/06/2023 Have You Repeated Any Grades? No Information not available 10/06/2023 Do You Use Your Seat Belt Or Car Seat Routinely? Yes Information not available 10/06/2023 Are You Sexually Active? No Information not available 10/06/2023 Do You Have Any Siblings? Yes Information not available 10/06/2023 Do You Have Smoke And Carbon Monoxide Detectors In Your Home? Yes Information not available 10/06/2023 At What Age Did You Start Smoking Tobacco? 14 Information not available 10/06/2023 Are You Passively Exposed To Smoke? No Information no t available 10/06/2023 Are There Any Smokers In Your House? No Information not available 10/06/2023 How Much Tobacco Do You Smoke? No Information not available 10/06/2023 Do You Use Sunscreen Routinely? No Information not available 10/06/2023 How Many Years Have You Smoked Tobacco? 20 Information not available 10/06/2023 Do You Have Difficulty Walking Or Climbing Stairs? No Information not available 10/06/2023 Sex: Female Functional Status Question Answer Note LastModified by Organizat ion Details LastModified Time Do you use any illicit or recreational drugs? No Information not available 10/06/2023 What is your level of alcohol consumption? None Information not available 10/06/2023 Are you currently employed? Yes Information not available 10/06/2023 Are you able to walk? YESWOREST Information not available 10/06/2023 Do you have difficulty doing errands alone? No Information not available 10/06/2023 Are you able to care for yourself independently? Yes Information not available 10/06/2023 Do you have difficulty dressing, bathing, grooming, or toileting? No Information not available 10/06/2023 What is your exercise level? Moderate Information not available 10/06/2023 Mental Status Question Answer Note LastModified by Organization D etails LastModified Time Do you have difficulty concentrating, remembering or making decisions? No Information no t available 10/06/2023 Are you or have you been involved with bullying? No Information not available 10/06/2023 Family History Nothing Reported. Medical History No medical history recorded. Gynecological History Statement/Question Response Menses Monthly N HPV Vaccine N Date of Last Pap Smear Most Recent Mammogram 03/16/2022 Age at First Child 35 Obstetrics History GPAL:G 0 P 0 0 0 0 Immunizations Vaccine Type Date Status Note Provider Nam e and Address Organization Details Recorded Time Tdap 11/16/2023 completed Tiffanie Breen APRN [address] [facility], [place], [address], [facility] [employer] 11/16/2023 17:41:28 Past Encounters Encounter ID Performer Location Encounter Start Date Encounter Closed Date Diagnosis/Indication Diagnosis SNOMED-CT Code Diagnosis ICD10 Code Diagnosis Note [id number] Marjorie MclaughlinTYLER [place] [id number] 10/06/2023 11:43:32 10/08/2023 13:14:08 Hypertensive disorder 11815985 I10 Hyperlipidemia 43123173 E78.5 Cough 48605810 R05.9 Acute bronchitis 5441545 2 J20.9 [id number] Tiffanie Breen APRN [place] [id number] 11/16/2023 16:50:28 11/16/2023 17:36:08 Puncture wound of hand 118713066 S61.431A Body mass index 30+ - obesity 195106167 Z68.38 Health Concerns Section Related Observation LastModified by Organization Detai ls LastModified Time None Recorded Concern Status LastModified by Organization Details LastModified Time None Recorded Advance Directives Directive N: Payers Insurance Date Sequence Insurance Name Policy Number Policy Yu Covered Member ID Yu Member ID Guarantor Name 11/16/2023 [place]: [facility] [employer] [facility] Radha L Irons [id number] Radha Irons 10/06/2023 1 *SELF PAY* Vi cky Irons 11/16/2023 1 [employer] (MEDICARE REPLACEMENT/A DVANTAGE - PPO) [id number] Radha L Irons [id number] Radha Irons 11/16/2023 1 [place] RADHA GODINE[place] OF [place] - MEDICA[place] ([place]MO) [id number] Radha L Irons [id number] Radha Irons OBGyn Episode No OBEpisode recorded.
--- OUTSIDE RECORDS SUMMARY | 2024-09-08 13:05 | XMS_ITS ---
Author Organization Unknown TREATMENT PLAN [facility] Start Date Provider Encounter for Check-up [id number] [facility]
--- OUTSIDE RECORDS SUMMARY | 2024-09-08 13:05 | XMS_ITS | Clinical Summary ---
Author Organization [facility] Address [address] [place] [address] Care Team Providers Care Toppiece Chopper Name Role Phone Unavailable Primary Care Provider Unavailabl e Social History Tobacco Use Types Packs/Day Years Used Date Smoking Tobacco: Never Assessed Comments Unknown Sex and Gender Information Value Date Recorded Sex Assigned at Not on file Legal Sex Female 2:16 AM PST Gender Identity Not on file Sexual Orientation Not on file Plan of Treatment Not on file
--- OUTSIDE RECORDS SUMMARY | 2024-09-08 13:05 | XMS_ITS | Continuity of Care Document ---
Author Organization [facility] [place], [facility] [address] Address [address] [place] [address] Assessment No assessment recorded. Plan of Treatment [...] Organization Details Recorded Time Sensorineural hearing loss 96090345 Active 2023 XAVIER BUTLER [address] [facility], [place], [address] , [facility] [place] 4 12:33:56 Problem Notes None recorded. Medical [...] SNOMED-CT Code Diagnosis ICD10 Code Diagnosis Note [id number] XAVIER BUTLER [facility] [facility], [place] [address] 07/16/2024 14:47:55 07/16/2024 15:07:37 Sensorineural hearing loss 65178786 H90.3 Health Concerns Section Related Observation LastModified by Organization Detai ls LastModified Time None Recorded Concern Status LastModified by Organization Details LastModified Time None Recorded Payers Encounter Date Sequence Insurance Name Policy Number Policy Yu Covered Member ID Yu Member ID Guarantor Name 07/16/2024 [employer] Nathaniel Irons NATHANIEL IRONS NATHANIEL IRONS Nathaniel Irons OBGyn Episode No OBEpisode recorded.
== END 2024-09-04 23:59 ==
LOC: LAB.DROPOF 09-08 12:58
PROVIDERS: PCP Nurse Practitioner Family; Visit Provider Nurse Practitioner Family
DX: R35.0 Frequency of micturition (principal)
CPT/HCPCS: 87086

== ENCOUNTER 2024-10-13 22:17 | Emergency (ER) | payer OTHER, SELFPAY ==
--- OUTSIDE RECORDS SUMMARY | 2024-05-18 13:15 | XMS_ITS ---
Author Organization [facility] Address [address] [place] [address] Care Team Providers Care Tobacco Feeder Catcher Name Role Phone PCP, Does Not Have a Primary Care Provider Unava ilable _Gibran Hartman Unavailable REASON FOR VISIT RASH Encounters Encounter Location Date Provider Diagnosis [facility] Gibran [address] [facility] [address] [place] [address] 05/18/2024 Gibran _[facility] PLAN OF TREATMENT No Information
[2024-10-13 22:21] VITALS: BP 126/59; PULSE 82; RESP 20; TEMP 37.6; O2SAT 98; BMI 34.3
--- OUTSIDE RECORDS SUMMARY | 2024-10-13 22:27 | XMS_ITS | CCD ---
Author Name Interface, [id number] Address [address] [place] [address] [facility] Address [address] [place] [address] Care Team Providers Care Speech Language Specialist Name Role Phone Akash WATKINS, Nia Unavailable Unavailable Reason for Visit Social History Date Name Value Sex Female
--- OUTSIDE RECORDS SUMMARY | 2024-10-13 22:27 | XMS_ITS | Encounter Summary ---
Author Organization [facility] Address [address] [place] [address] Care Team Providers Care Director Of Patient Safety Name Role Phone Unavailable Primary Care Provider Unavailabl e Prior Encounters Date Type Department Care Team Description 03/03/2019 Converted CPS Chart Documents [facility] [address] [place] [phone] <No scans attached> 03/03/2019 Converted 13x Documents [facility] [address] [place] [phone] <No scans attached> Plan of Treatment Not on file Procedures Procedure Name Priority Date/Time Associated Diagnosis Comments MISSED APPOINTMENT Routine 02/19/2018 2: 00 AM FIRE TECHNOLOGY INSTRUCTOR 2 DO AMALGAM 2 SURFACE Routine 8 2:00 AM CDT 8 ENDODONTIC THERAPY, ANTERIOR TOOTH (EXCLUDING FINAL ADVENT) Routine 08/03/2017 2:00 AM CDT [address] [...]
--- OUTSIDE RECORDS SUMMARY | 2024-10-13 22:28 | XMS_ITS | Patient Health Record ---
Author Organization [facility] Address [address] [place] [address] Care Team Providers Care Milk Drying Machine Operator Name Role Phone PCP, Does Not Have a Primary Care Provider Unava ilable _Gibran Hartman Unavailable REASON FOR REFERRAL No Information Encounters Encounter Location Date Provider Diagnosis [facility] [address] [facility] [address] [place] [address] 05/18/2024 [facility] PLAN OF TREATMENT No Information Insurance Providers Payer Name Payer Address Payer Phone Subscriber Number Group Number Insured Name Patient Relationship to Insured Coverage Start Date Coverage End Date MEDICARE [place] [address] [place] [phone] [id number] NATHANIEL PÉREZ Self - patient is the insured
--- OUTSIDE RECORDS SUMMARY | 2024-10-13 22:28 | XMS_ITS | Clinical Summary ---
Author Organization [facility] Address [address] [place] [address] Care Team Providers Care Imaging Technologist Name Role Phone Unavailable Primary Care Provider [...]
--- OUTSIDE RECORDS SUMMARY | 2024-10-13 22:28 | XMS_ITS | Clinical Summary ---
Author Organization [facility] Address [address] [place] [address] Care Team Providers Care Soils Technician Name Role Phone Unavailable Primary Care Provider Unavailabl e Social History Tobacco Use Types Packs/Day Years Used Date Smoking Tobacco: Never Assessed Comments Unknown Sex and Gender Information Value Date Recorded Sex Assigned at Not on file Legal Sex Female 9:27 AM EDT Gender Identity Not on file Sexual Orientation Not on file Plan of Treatment Upcoming Encounters Date Type Department Care Team (Late st Contact Info) Description 10/16/2024 2:40 PM EDT Hospital Encounter [facility], [facility] [address] [facility] [place] [address] Stefano Ortiz MD [address] [facility] [place] [address] Health Maintenance Due Date Last Done Comments Cologuard 1950 Colonoscopy 1950 Colorectal Cancer Screening 1950 FIT 1951 Lipid Screening 06/18/1969 Tetanus Vaccination (Every 10 Years) 06/18/1969 Hepatitis C Virus (HCV) Screening 06/18/1972 Breast Cancer Screening 06/18/2001 Pneumococcal Vaccine: 50+ Years (1 of 1 - PCV) 002 Zoster-RZV(Shingrix) (1 of 2) 06/18/2001 Fall Risk Assessment 06/18/2016 Osteoporosis Screening 06/18/2016 COVID-19 Vaccine (2023- season) 2023 Advance Care Planning 02/13/2024 Depression Screening 02/13/2024 Influenza Vaccination (#1) 2024 RSV Vaccines (1 - 1-dose 75+ series) 06/18/2026 Insurance UHC MEDICARE
[2024-10-13 22:30] VITALS: BP 136/55; PULSE 82; O2SAT 98
[2024-10-13 23:00] VITALS: BP 134/52; PULSE 78; O2SAT 95
[2024-10-13 23:06] LABS: Adenovirus,PCR Not Detected (NotDetected); Chlamydophila Pneumoniae, PCR Not Detected (NotDetected); Coronavirus 19, PCR Not Detected (NotDetected); Coronovirus HKU1,PCR Not Detected (NotDetected); Influenza A, PCR Not Detected (NotDetected); Influenza AH1, 2009 Not Detected (NotDetected); Influenza AH1, PCR Not Detected (NotDetected); Influenza AH3,PCR Not Detected (NotDetected); Influenza B, PCR Not Detected (NotDetected); Mycoplasma Pneumoniae, PCR Not Detected (NotDetected); Parainfluenza 1, PCR Not Detected (NotDetected); Parainfluenza 2, PCR Not Detected (NotDetected); Parainfluenza 3, PCR Not Detected (NotDetected); Parainfluenza 4, PCR Not Detected (NotDetected)
[2024-10-13 23:07] LABS: Hematocrit 35.9 % (37.0-47.0); Hemoglobin 12.0 g/dL (12.2-16.2); Immature Granulocytes % 0.4 %; Mean Corpuscular HGB Conc 33.4 g/dL (31.8-35.4); Mean Corpuscular Hemoglobin 30.3 pg (27.0-31.2); Mean Corpuscular Volume 90.7 fl (81-99); Nucleated Red Blood Cells % 0 %; Platelet Count 203 K/mm3 (142-424); Red Blood Count 3.96 M/mm3 (4.20-5.40); Red Cell Distribution Width-SD 51.0 fL; White Blood Count 10.0 K/mm3 (4.8-10.8)
[2024-10-13 23:09] LABS: Albumin Level 4.1 g/dl (3.5-5.0); Chloride 102 mmol/L (98-107); Potassium 3.8 mmoL/L (3.5-5.1); Sodium 134 mmol/L (136-145)
[2024-10-13 23:12] LABS: Alanine Aminotransferase 59 U/L (12-78); Albumin/Globulin Ratio 1.3 (1.1-1.8); Alkaline Phosphatase 157 U/L (38-126); Anion Gap 12.8 mEq/L (5-15); Aspartate Amino Transferase 55 U/L (14-36); Bilirubin,Direct 1.2 mg/dl (0.0-0.4); Bilirubin,Total 2.5 mg/dl (0.2-1.3); Blood Urea Nitrogen 17 mg/dl (7-17); Carbon Dioxide 23 mmol/L (22.0-30.0); Creatinine Clearance Estimated 70 mL/min (50-200); Creatinine,Serum 0.50 mg/dl (0.52-1.04); Estimated Glomerular Filt Rate 121 ml/min (>60); GFR (African American) 146 ML/MIN (>60); Globulin 3.1 g/dL (1.3-3.2); Total Protein,Serum 7.2 g/dl (6.3-8.2)
[2024-10-13 23:13] LABS: Calcium 9.2 mg/dl (8.4-10.2); Glucose 124 mg/dl (74-100)
[2024-10-13] MEDS: LACTATED RINGERS 1000ML 1,000 ML 999 ML IV (23:13)
[2024-10-13 23:30] VITALS: BP 121/49; PULSE 83; O2SAT 96
[2024-10-13 23:45] VITALS: PULSE 88; O2SAT 98
[2024-10-13 23:50] LABS: INR 0.99 (0.9-1.1); Prothrombin Time 11.0 seconds (10.1-12.5)
[2024-10-13 23:52] LABS: Hepatitis C Ab Qual. W/ RFX NEGATIVE (Negative)
--- NOTE | 2024-10-13 23:55 | CT_ITS ---
PROCEDURE INFORMATION: Exam: CT Abdomen And Pelvis With Contrast Exam date and time: 10/14/2024 2:04 AM Age: 74 years old Clinical indication: Abdominal pain; Additional info: R side back pain and rlq pain, fever, nausea, diar TECHNIQUE: Imaging protocol: Computed tomography of the abdomen and pelvis with contrast. Radiation optimization: All CT scans at this facility use at least one of these dose optimization techniques: automated exposure control; mA and/or kV adjustment per patient size (includes targeted exams where dose is matched to clinical indication); or iterative reconstruction. Contrast material: ISOVUE; Contrast volume: 75 ml; Contrast route: IV; COMPARISON: No relevant prior studies available. FINDINGS: Lungs: Lung bases are clear as visualized. Heart: Base of heart is unremarkable as visualized. Coronary arteries: Moderate coronary calcified atherosclerotic disease. Diaphragm: Small sliding-type hiatal hernia. Liver: Normal. No mass. Gallbladder and biliary ducts: Biliary stent is in place. Pneumobilia is present. Heterogeneous appearance of the gallbladder wall. Pancreas: Mild stranding about the pancreatic groove. Pancreatic head demonstrates few foci of hypoattenuation with prominent pancreatic duct. Spleen: Splenule is seen. Adrenal glands: Normal. No mass. Kidneys and ureters: Benign left renal cysts. Mild prominence of the biliary collecting system. Stomach and bowel: Diverticulosis without evidence of diverticulitis. Some fecalized distal small bowel. Appendix: No evidence of appendicitis. Intraperitoneal space: Unremarkable. No free air. No significant fluid collection. Vasculature: Atherosclerotic disease of the abdomen elsewhere, moderate to severe. Lymph nodes: Unremarkable. No enlarged lymph nodes. Urinary bladder: Unremarkable as visualized. Reproductive: Unremarkable as visualized. Bones/joints: Degenerative change of the visualized osseous structures. Bones appear somewhat demineralized. Postoperative changes of the lumbar spine with decompression. Soft tissues: Anterior abdominal wall postsurgical changes. IMPRESSION: 1. Recommend right upper quadrant ultrasound for further assessment of the gallbladder, correlate clinically with cholecystitis. 2. Biliary stent is in place. Mild prominence of the intrahepatic biliary system, could indicate obstruction, cholangitis. Correlate clinically. 3. Small amount of stranding along the pancreatic groove, could represent pancreatitis in the correct clinical setting. 4. Correlate patient's history with pancreatic neoplasm. MRCP can be of further utility if it is clinically warranted. COMMENTS: Consistent with the [employer]'s Incidental Findings Committee white paper (J Am Lima Radiol 2018): Any incidental renal lesion less than 1 cm or classified as too small to characterize, or any incidental cystic renal lesion characterized as simple-appearing, is likely benign. No follow-up imaging is recommended for these lesions per consensus recommendations based on imaging criteria.
[2024-10-14] VITALS (11 sets, daily range): BP systolic 97–128; BP diastolic 44–51; PULSE 69–84; RESP 14; TEMP 37.1–39.4; O2SAT 90–97
[2024-10-14] MEDS: HYDROMORPHONE 2MG/ML SYRINGE 0.5 MG IV (00:25)
[2024-10-14] MEDS: ONDANSETRON 4MG/2ML VIAL 4 MG IV (00:25)
--- NOTE | 2024-10-14 00:57 | HMH.EDGENADL ---
Discharge Plan Disposition Patient Disposition: Xfer Short-Term Hosp Condition: Fair Prescriptions Prescriptions: No Action Nexlizet 180-10 mg tablet 1 tab PO DAILY Qty: 90 1RF labetalol 100 mg tablet 100 mg PO BID 90 Days Qty: 180 2RF nitrofurantoin monohyd/m-cryst [Macrobid] 100 mg capsule 100 mg PO Q12H 10 Days Qty: 20 0RF Rx Instructions: must administer with a meal/food Referrals Follow up/Referrals: Provider,Referral, MD [Primary Care Provider, Medical] - See instructions Clinical Impressions Clinical Impression: Fever, Pancreatic mass, Hyperbilirubinemia, Abdominal pain, Transaminitis Stand Alone Forms Stand Alone Forms: Transfer Record - ED Print Language Print Language: Icelandic Discharge ED Provider: Saurabh Santa General Adult HPI General Chief complaint: PAIN Stated complaint: back pain x 2 days Time Seen by Provider: 10/13/24 23:30 Mode of Arrival: EMS Source of Information: Patient Description of Symptoms (Recalled from ER Triage Doc. by RN): Back Pain Pt presents to the ED wioth c/o lower back pain X 2 days. Pt also c/o nausea and chills X 1 day. Pt recieved 2mg zogran and 25mcg of fentanyl per EMS GEOLOGICAL MANAGER. 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 Patient reports she is also having nausea and chills, temperature 99.9 at home reportedly. Patient received Zofran and fentanyl prior to arrival from EMS and states symptoms are slightly improved but she is still having pain. She does have a history of previous back surgeries with hardware but has had no recent injuries. She states she was recently treated for urinary tract infection with nitrofurantoin and when she was traveling she was noted by airline staff to be extremely jaundiced so she was taken to a local hospital where they identified a bilirubin of 18 and the cancer. Stents were placed and patient states she is going to follow-up with the team in [place] for continued surgery and treatment because she really liked the physicians there. Reportedly at the time of discharge her bilirubin was 3. She states she has no burning with urination, no blood in the urine, she did have diarrhea earlier today. She has no numbness, tingling, or weakness in the legs, no saddle anesthesia. No incontinence. No other complaints or concerns. Related Data Previous Rx's ?Medication ?Instructions ?Recorded bempedoic acid 180 mg-ezetimibe 10 1 tab PO DAILY #90 tabs 09/04/24 mg tablet (Nexlizet) labetalol 100 mg tablet 100 mg PO BID 90 days #180 tabs 09/04/24 nitrofurantoin 100 mg PO Q12H 10 days #20 caps 09/04/24 monohydrate/macrocrystals 100 mg capsule (Macrobid) Allergies Allergy/AdvReac Type Severity Reaction Status Date / Time doxycycline Allergy Severe Anaphylaxis Verified 10/13/24 22:27 Vyifpce-IVZ-TtW Reductase AdvReac Intermediate Cramping Verified 10/13/24 22:27 Inhibitor of the Muscles [facility] Disclaimer: The information contained in this section may have been updated after the patient was seen, as this information can be updated by other users. Medical History (Updated 10/14/24 @ 02:57 by Saurabh Santa MD) Pancreatic cancer No significant family history History of ganglion cyst Hyperlipidemia Cancer, uterine Hypertension Surgical History (Updated 09/04/24 @ 10:46 by Melani Reyez) History of hysterectomy Social History (Updated 09/04/24 @ 10:47 by Melani Reyez) Smoking Status: Former smoker second hand exposure: No alcohol intake: never substance use type: denies use current occupational status: employed Travel in the last 8 weeks?: None household members: family and children housing: house marital status: single Have you lived/traveled outside US in past 30 days?: No Contact w/someone who lives/traveled outside US past 30 days?: No Exposure to someone with infectious disease in past 14 days?: No Do you have a fever (greater than 100.4 F or 38 C)?: No Have you tested positive for COVID-19?: No Exposed to someone with COVID-19 in past 14 days?: No Do you have a sore throat?: No Do you have a cough?: No Do you have any weakness?: No Do you have any diarrhea?: No Are you experiencing any unusual bleeding?: No Do you have any muscle aches/pain?: No Do you have any abdominal pain?: No Are you experiencing loss of taste or smell?: No Other Medical History Have you received the Pneumonia Vaccine: No ROS Obtained: Yes Systems reviewed as appropriate & no additional complaints except as documented per HPI Physical Exam General General appearance: alert, in no apparent distress and obese Head Head exam: atraumatic and normocephalic Eye Eye exam: Present PERRL and EOMI ENT ENT exam: Present mucous membranes moist Neck Neck exam: Present normal inspection and full ROM Chest Chest inspection: Present symmetric chest wall rise Respiratory Respiratory exam: Present normal lung sounds bilaterally; Absent respiratory distress, wheezes or stridor Cardiovascular Cardiovascular exam: Present regular rate and normal rhythm Abdominal Exam Abdominal exam: Present soft; Absent distention, tenderness, guarding or rebound Extremities Exam Extremities exam: Present full ROM; Absent edema Back Exam Back exam: Absent tenderness, CVA tenderness (R), CVA tenderness (L), paraspinal tenderness or vertebral tenderness Neurological Exam Neurological exam: Present alert and oriented X3; Absent motor sensory deficit Psychiatric Psychiatric exam: Present normal affect and normal mood Skin Skin exam: Present warm and dry Medical Decision Making Medical Records Medical records reviewed: Yes I reviewed the patient's medical records. Screening: Per USPSTF and CDC recommendations, given the prevalence of disease in our region, it is our hospital?s policy to screen for HIV and viral Hepatitis for all patients aged 18 and over and those with ongoing risk factors. Jae Inquiry Pt receiving controlled substance: No Vital Signs: 10/13/24 22:21 10/13/24 22:30 10/13/24 23:00 Temperature 99.7 F H Temperature Source Oral Pulse Rate 82 78 Pulse Rate [Right] 82 Respiratory Rate 20 Blood Pressure 136/55 L 134/52 L Blood Pressure [Left Arm] 126/59 L Blood Pressure Mean Blood Pressure Mean [Left Arm] 81 Blood Pressure Source Blood Pressure Source [Left Arm] Automatic Cuff Blood Pressure Position Blood Pressure Position [Left Arm] Sitting 02 Sat by Pulse Oximetry 98 98 95 Oxygen Delivery Method Room Air Room Air Room Air 10/13/24 23:30 10/13/24 23:45 10/14/24 00:00 Temperature Temperature Source Pulse Rate 83 88 84 Pulse Rate [Right] Respiratory Rate Blood Pressure 121/49 L Blood Pressure [Left Arm] Blood Pressure Mean Blood Pressure Mean [Left Arm] Blood Pressure Source Blood Pressure Source [Left Arm] Blood Pressure Position Blood Pressure Position [Left Arm] 02 Sat by Pulse Oximetry 96 98 95 Oxygen Delivery Method Room Air 10/14/24 00:01 10/14/24 00:01 10/14/24 01:00 Temperature 102.9 F H Temperature Source Pulse Rate 82 Pulse Rate [Right] Respiratory Rate Blood Pressure 128/44 L Blood Pressure [Left Arm] Blood Pressure Mean 72 Blood Pressure Mean [Left Arm] Blood Pressure Source Blood Pressure Source [Left Arm] Blood Pressure Position Blood Pressure Position [Left Arm] 02 Sat by Pulse Oximetry 92 L Oxygen Delivery Method 10/14/24 02:09 10/14/24 02:11 10/14/24 02:11 Temperature Temperature Source Pulse Rate 78 80 Pulse Rate [Right] Respiratory Rate Blood Pressure 104/49 L Blood Pressure [Left Arm] Blood Pressure Mean 67 Blood Pressure Mean [Left Arm] Blood Pressure Source Blood Pressure Source [Left Arm] Blood Pressure Position Blood Pressure Position [Left Arm] 02 Sat by Pulse Oximetry 93 L 96 Oxygen Delivery Method 10/14/24 02:30 10/14/24 02:31 10/14/24 03:00 Temperature 98.8 F Temperature Source Pulse Rate 81 Pulse Rate [Right] Respiratory Rate Blood Pressure 108/51 L 97/51 L Blood Pressure [Left Arm] Blood Pressure Mean 69 60 Blood Pressure Mean [Left Arm] Blood Pressure Source Blood Pressure Source [Left Arm] Blood Pressure Position Blood Pressure Position [Left Arm] 02 Sat by Pulse Oximetry 94 L Oxygen Delivery Method 10/14/24 03:20 10/14/24 03:30 10/14/24 03:48 Temperature 98.8 F Temperature Source Pulse Rate 69 81 Pulse Rate [Right] Respiratory Rate 14 Blood Pressure 104/48 L 104/48 L Blood Pressure [Left Arm] Blood Pressure Mean 56 Blood Pressure Mean [Left Arm] Blood Pressure Source Automatic Cuff Blood Pressure Source [Left Arm] Blood Pressure Position Sitting Blood Pressure Position [Left Arm] 02 Sat by Pulse Oximetry 90 L Oxygen Delivery Method Room Air Lab Data Lab Results 10/13/24 22:30: WBC 10.0, RBC 3.96 L, Hgb 12.0 L, Hct 35.9 L, MCV 90.7, MCH 30.3, MCHC 33.4, RDW 15.4, Plt Count 203, MPV 12.9 H, Neut % (Auto) 77.3, Lymph % (Auto) 12.3, Fisher % (Auto) 9.6 H, Eos % (Auto) 0.1, Baso % (Auto) 0.3, Neut # (Auto) 7.7, Lymph # (Auto) 1.2, Fisher # (Auto) 1.0, Eos # (Auto) 0.0, Baso # (Auto) 0.0, PT 11.0, INR 0.99, Sodium 134 L, Potassium 3.8, Chloride 102, Carbon Dioxide 23, Anion Gap 12.8, BUN 17, Creatinine 0.50 L, Estimated Creat Clear 70, Estimated GFR 121, Est GFR ( Amer) 146, Glucose 124 H, Calcium 9.2, Total Bilirubin 2.5 H, Direct Bilirubin 1.2 H, AST 55 H, ALT 59, Alkaline Phosphatase 157 H, Total Protein 7.2, Albumin 4.1, Globulin 3.1, Albumin/Globulin Ratio 1.3, Lipase 253, HCV Ab ARMANI w/Rflx PCR Qn Negative, HIV Ag/Ab Combo Qual Negative 10/13/24 23:00: Chlamy pneumoniae PCR Not detected, Adenovirus (PCR) Not detected, B. pertussis DNA (PCR) Not detected, Coronavirus OC43 (PCR) Not detected, Coronavirus HKU1 (PCR) Not detected, Coronavirus 229E (PCR) Not detected, SARS-CoV-2 (PCR) Not detected, Coronavirus NL63 (PCR) Not detected, Human Metapneumovir PCR Not detected, Influenza A (H1) PCR Not detected, Influ A (H1N1/09) PCR Not detected, Influenza A (H3) PCR Not detected, Influenza Type A (PCR) Not detected, Influenza Type B (PCR) Not detected, M. pneumoniae (PCR) Not detected, Parainfluenza 1 (PCR) Not detected, Parainfluenza 2 (PCR) Not detected, Parainfluenza 3 (PCR) Not detected, Parainfluenza 4 (PCR) Not detected, RSV (PCR) Not detected, Entero/Rhino (PCR) Detected A 10/14/24 00:32: Lactate 1.7 10/14/24 01:05: Urine Color Yellow, Urine Appearance Clear, Urine pH 6.5, Ur Specific [place] 1.020, Urine Protein Negative, Urine Glucose (UA) Negative, Urine Ketones Trace, Urine Blood Negative, Urine Nitrate Negative, Urine Bilirubin Negative, Urine Urobilinogen 0.2, Ur Leukocyte Esterase Negative, Urine RBC 3-5, Urine WBC 3-5, Ur Squamous Epith Cells 5-10, Urine Bacteria 1+ 10/13/24 22:30 10/13/24 22:30 Orders (Tests/Meds): ED MEDICATIONS Discontinued Medications Generic Name Dose Route Start Last Admin Trade Name Markq PRN Reason Stop Dose Admin Acetaminophen 1,000 mg 10/14/24 00:58 10/14/24 01:02 Acetaminophen 1,000mg/100ml Vial IV 10/14/24 00:59 1,000 mg ONCE ONE Administration Hydromorphone HCl 0.5 mg 10/14/24 00:13 10/14/24 00:25 Hydromorphone 2mg/Ml Syringe IV 10/14/24 00:14 0.5 mg ONCE ONE Administration Lactated Ringer's 1,000 mls @ 999 mls/hr 10/13/24 23:08 10/14/24 00:48 Lactated Ringer's 1000 Ml Bag IV 10/14/24 00:08 Infused .Q1H1M ONE Infusion Piperacillin Sod/Tazobactam 100 mls @ 200 mls/hr 10/14/24 02:55 10/14/24 03:48 Sod 4.5 gm/ Sodium Chloride IV 10/14/24 03:24 Infused ONCE ONE Infusion Iopamidol 75 ml 10/14/24 02:08 10/14/24 02:09 Iopamidol-370 (76%);100ml Bottle IV 10/14/24 02:09 75 ml ONCE ONE Administration Ondansetron HCl 4 mg 10/14/24 00:13 10/14/24 00:25 Ondansetron 4mg/2ml Vial IV 10/14/24 00:14 4 mg ONCE ONE Administration Sodium Chloride 10 ml 10/14/24 02:08 10/14/24 02:09 Sodium Chloride 0.9% 10ml Syr (Rad Only) IV 11/13/24 02:07 10 ml NEEDED PRN Administration Maintain IV Site ORDERS Category Date Time Status CT abdomen pelvis w con Stat Cat Scan 10/13/24 23:55 Completed Bilirubin,Direct Stat Lab 10/13/24 22:30 Completed CBC w/Auto Diff [Complete Blood Count Auto Diff] Stat Lab 10/13/24 22:30 Completed CMP [Comprehensive Metabolic Panel] Stat Lab 10/13/24 22:30 Completed Full Resp Panel w/COVID ([facility]) Routine Lab 10/13/24 23:00 Completed HIV Combo Stat Lab 10/13/24 22:30 Completed Hepatitis C Ab Qual. W/ RFX Stat Lab 10/13/24 22:30 Completed Lactic Acid Stat Lab 10/13/24 23:00 Completed Lipase Stat Lab 10/14/24 02:26 Completed PT INR [Prothrombin Time INR] Stat Lab 10/13/24 22:30 Completed Urinalysis and Microscopic Stat Lab 10/14/24 01:05 Completed Blood Culture Stat Micro 10/14/24 01:15 Received Medical Decision Narrative: In summary, this 74-year-old female with comorbidities described in the HPI presents to the emergency department today with right low back pain radiating to the right abdomen with associated elevated temperature, nausea, diarrhea in the setting of newly diagnosed pancreatic cancer and recent urinary tract infection. On initial evaluation patient is hemodynamically stable, temperature is elevated at 99.7, patient is obese but nontoxic-appearing, cardiopulmonary exam benign, patient complains of pain in the right low back and right lower quadrant but I cannot reproduce this on exam she has no tenderness of the CVA area, low back, vertebral column, or right lower quadrant. Differential diagnosis includes but is not limited to urinary tract infection, pyelonephritis, perinephric abscess, appendicitis, diverticulosis, diverticulitis, considered other infections as well such as viral illness, also considered the possibility of metastatic disease, among others. Based on these concerns, I ordered hematologic and serum labs, CT imaging, urinalysis. Patient received Dilaudid and Zofran as well as IV fluids for initial treatment in the ER Labs personally reviewed demonstrate no leukocytosis, slight anemia which is nonactionable at this time, normal platelets, PT/INR normal, CMP nonactionable, bilirubin is mildly elevated at 2.5 but this is decreased from the time of her discharge from her most recent hospitalization reportedly. Lactate normal at 1.7, UA negative for findings of infection. After returning from CT patient had temperature of 102.9. IV acetaminophen being administered. Blood cultures being collected. CT abdomen pelvis personally interpreted demonstrates abnormalities in the right upper quadrant consistent with pancreatic mass, biliary stenting, no obvious appendicitis. See radiology read for full interpretation. I ended up speaking with the reading radiologist about his interpretation. He reports there is the possibility of pancreatitis, cholangitis, or cholecystitis. Patient does not have any focal tenderness in this area at this time. He is concerned for more inflammatory changes than he would expect with recent stenting and that it is possible to cystic duct is obstructed despite patent stent. I reviewed all these findings with the patient. She is resting more comfortably at this time. I discussed that with these findings she likely requires transfer to higher level of care because they are related to her cancer. She is agreeable to this. Reached out to , awaiting a callback at this time. transfer center and physician Dr. Oliveira called back. We discussed this case including patient's recent diagnosis of pancreatic cancer that has not yet been managed with surgery or chemo as well as the findings and report from radiology. They graciously accepted this patient for transfer to [facility] [place] ER. Patient agreeable to this. Zosyn being administered due to fever and concerning right upper quadrant changes potential infectious etiology. She was evaluated immediately prior to transfer and remains hemodynamically stable, fever is now absent, protecting airway, pain controlled. She was transferred in stable condition. Critical Care Critical Care Time Critical Care Time: No
[2024-10-14] MEDS: ACETAMINOPHEN 1,000MG/100ML VIAL 1000 MG IV (01:02)
[2024-10-14 01:10] LABS: Microscopic, Urine URINE MICROSCOPIC (MICROSCOPIC)
[2024-10-14 01:11] LABS: Bilirubin,Urine Negative (Negative); Color,Urine YELLOW (Yellow); Glucose,Urine (UA) Negative (Negative); Ketones,Urine TRACE (Negative); Leukocyte Esterase,Urine Negative (Negative); PH,Urine 6.5 (5.0-8.5); Protein,Urine Negative (Negative); Specific Gravity, Urine 1.020 (1.005-1.030); Urobilinogen,Urine 0.2 EU/dl (0.2)
[2024-10-14 01:20] LABS: Bacteria,Urine 1+ /lpf
[2024-10-14] MEDS: SODIUM CHLORIDE 0.9% 10ML SYR (RAD ONLY) 10 ML IV (02:09)
[2024-10-14] MEDS: IOPAMIDOL-370 (76%);100ML BOTTLE 75 ML IV (02:09)
[2024-10-14 02:39] LABS: Lipase 253 U/L (23-300)
[2024-10-14] MEDS: PIPERACILLIN/TAZO 4.5 GM in 0.9 % SODIUM CHLORIDE 100 ML IV (03:18)
== END 2024-10-14 03:54 | disposition short-term general hospital (02) ==
PROVIDERS: Emergency Medicine; Emergency Provider Emergency Medicine
DX: R10.31 Right lower quadrant pain (principal); R50.9 Fever, unspecified; R74.01 Elevation of levels of liver transaminase levels; E80.6 Other disorders of bilirubin metabolism; C25.9 Malignant neoplasm of pancreas, unspecified; M54.50 Low back pain, unspecified; K86.89 Other specified diseases of pancreas; I10 Essential (primary) hypertension; E78.5 Hyperlipidemia, unspecified; Z87.891 Personal history of nicotine dependence
CPT/HCPCS: 0223U; 74177; 80053; 81001; 82248; 83605; 83690; 85025; 85610; 86803; 87040; 87389; 96361; 96365; 96375; 99285; J0131; J1171; J2405; J2543; J7120; Q9967

== ENCOUNTER 2024-10-24 19:09 | Emergency (ER) | payer MEDICARE, SELFPAY ==
--- OUTSIDE RECORDS SUMMARY | 2021-10-27 11:09 | XMS_ITS | Continuity of Care Document ---
Author Organization [facility] Address [address] [address] [place] [address] Phone Care Team Providers Care Duct Layer Supervisor Name Role Phone Misael Corea DO Unavailable Unavailable Advance Directives Directive Yes / No Effective Date File Name No Information Encounters Encounter Description Practice Location Reason(s) For Visit Diagnoses Date Provider Providers Copied on Encounter [facility], [address], [place], [place], [id number], [place] tel:[phone] /[facility] No Information 2 Anmol Gallegoon. [address] [facility], [address], [place], [place], [id number] , [place]. tel:[phone] Family History Family Member Type Diagnosis Age At Onset No Information Payers Payer name Insurance type Covered green party ID Authoriza tion(s) No Information Social [...]
--- OUTSIDE RECORDS SUMMARY | 2022-02-21 08:00 | XMS_ITS | Continuity of Care Document ---
Author Organization [facility], [facility] Address [address] [place] [address] Phone Care Team Providers Care Photographic Spotter Name Role Phone Clarence WATIKNS, PhD, Jamie Unavailable Unavailable Advance Directives Directive Yes / No Effective Date File Name No Information Encounters Encounter Description Practice Location Reason(s) For Visit Diagnoses Date Provider Providers Copied on Encounter [facility], [facility], [address] [place] [address], [id number], [place] tel:[phone] [facility] No Information 3 Clarence Ayala. [facility], [facility], [address] [place] [address], [id number], [place]. tel:[phone] Family History Family Member Type Diagnosis Age [...]
--- OUTSIDE RECORDS SUMMARY | 2023-02-21 09:00 | XMS_ITS | Continuity of Care Document ---
Author Organization [facility] Address [address] [facility] [address] [facility] [address] [place] [address] Phone Care Team Providers Care Dope Sprayer Name Role Phone Sami Batista MD Unavailable Unavailable Allergies, Adverse Reactions, Alerts Substance Reaction Status Criticality doxycycline Active No Information Medications Medication Instructions Dosage Effective Dates (start - stop) Status Comments Acular 0.5 % eye drops instill one drop three times per day into the right eye - Active ofloxacin 0.3 % eye drops instill one drop three times per day into the right eye - Active prednisolone acetate 1 % eye drops,suspension instill one drop three times per day into the right eye - Active NEXLETOL (unknown strength) Not Available - Active labetalol (unknown strength) Not Available - Active ofloxacin 0.3 % eye drops instill one drop three times per day into the right eye - No Longer Active prednisolone acetate 1 % eye drops,suspension instill one drop three times per day into the right eye - No Longer Active Acular 0.5 % eye drops instill one drop three times per day into the right eye - No Longer Active Procedures Procedure Date Computerized Corneal Topography No Charg e Ophthalmic IOL Master A Scan No Charge EP Low Moderate MDM Ophthalmic IOL Master Ultrasound B Scan Ultrasound B Scan Computerized Corneal Topography 023 Refraction SCODI-Retina Stereo Fundus Photos No Charge COLLECTION TELLER Moderate MDM Advance Directives Directive Yes / No Effective Date File Name No Information Encounters Encounter Description Practice Location Reason(s) For Visit Diagnoses Date Provider Providers Copied on Encounter EP Low Moderate MDM [facility] [address], [id number], tel:[phone] [place] Cataract OU (chief complaint) Mixed type age-related cataract, right eye Lester Gallardo. [address] [place] [address], [id number], [place]. tel:[phone] [facility] , [address] [place] [address], [id number], tel:[phone] [place] cataract follow up (chief complaint) Mixed type age-related cataract, right eyeMixed type age-related cataract, left eye Lester Gallardo. [address] [place] [address], [id number], [place]. tel:[phone] Referring Provider: Sami Rush, [address] [place] [address], [id number] . tel:[phone] COLLECTION TELLER Moderate MDM [facility] [address], [id number], [place] tel:[phone] [place] Cataract Evaluation (chief complaint) Mixed type age-related cataract, both eyes Lester Gallardo. [address] [place] [address], [id number], [place]. tel:[phone] Referring Provider: Sami Rush, [address] [place] [address], [id number] . tel:[phone] Family History Family Member Type Diagnosis Age At Onset Mother Problem cataract Payers Payer name Insurance type Covered alliance party ID Authoriza tion(s) No Information Social History Type Description Quantity Date Captured Comments Alcohol Use Details No Caffeine Use Details Unknown Tobacco Use Status Current non-smoker Smoking Status Never smoker Sex Female Chief Complaint And Reason For Visit From encounter dated '02/21/2023 13:00'. Cataract OU (chief complaint). Description: 72 y/o femalePatient is returning for Cataract OU.Patient complains of difficulty seeing street signs at nighttime in both eyes. Patient complains of difficulty performing handiwork with both eyes like threading a needle is difficult to see. Patient complains of poor night vision. Patient complains of glare/haloes from driving at nighttime from car headlights. Patient complains of blurry/hazy vision when driving at nighttime. Patient notes having floaters but nothing constant, comes out more when tired. Patient denies any new floaters and denies flashes. Patient denies irritation and pain. Patient does not use any gtts. Reason For Referral Reason For Referral No Information History Of Present Illness Encounter Date Complaint History Of Prese nt Illness Cataract OU 72 y/o femalePat ient is returning for Cataract OU.Patient complains of difficulty seeing street signs at nighttime in both eyes. Patient complains of difficulty performing handiwork with both eyes like threading a needle is difficult to see. Patient complains of poor night vision. Patient complains of glare/haloes from driving at nighttime from car headlights. Patient complains of blurry/hazy vision when driving at nighttime. Patient notes having floaters but nothing constant, comes out more when tired. Patient denies any new floaters and denies flashes. Patient denies irritation and pain. Patient does not use any gtts. cataract follow up The 71 year o ld female presents for evaluation of cataract follow up. Patient notes difficulty when driving at night. She is very bothered at night by bright lights. Patient is having trouble reading at times. Patient would like to have cataract surgery to improve vision for daily activities. Cataract Evaluation The 71 year old female presents for N/P evaluation of Cataract Evaluation. Patient c/o decreased vision OU x long time. Patient states seeing floaters OD x long time. Patient denies flashes, or pain.No DMgtts - None at this time. Functional Status Date Functional Assessmen t No Information Instructions Date Instruction Additional Infor maykel Impression/Plan Related to Mixed type age-related cataract, right eye Proceed with Catarac t Extraction OD with Dr. Batista at [facility]. Related to Mixed type age-related cataract, right eye Impression/Plan Related to Mixed type age-related cataract, right eye Recommended Cataract Sx OD 1st, OS 2nd with Dr. Batista at [facility]. Related to Mixed type age-related cataract, both eyes Impression/Plan Related to Mixed type age-related cataract, both eyes Assessments Type Assessment Date assessment Mixed type age-related cataract, right eye impression 2+ NS, 2+ AC OD: vis ually significantIOL MasterAscanBscan: no intraocular/orbital abnormalities OUTOPO: moderate astigmatism OUOCT MAC 05/10/22: No mac pathology OU Patient Care Teams Name Effective Dates (start - stop) Status Members No Information
--- OUTSIDE RECORDS SUMMARY | 2024-05-18 13:15 | XMS_ITS ---
Author Organization [facility] Address [address] [place] [address] Care Team Providers Care Nursery Nurse Name Role Phone PCP, Does Not Have a Primary Care Provider Unava ilable _Gibran Hartman Unavailable [phone] REASON FOR VISIT RASH Encounters Encounter Location Date Provider Diagnosis [facility] Gibran [address] [facility] [address] [address] [place] [address] 05/18/2024 Gibran _[facility] PLAN OF TREATMENT No Information
--- OUTSIDE RECORDS SUMMARY | 2024-10-24 19:31 | XMS_ITS | Clinical Summary ---
Author Organization [facility] Address [address] [place] [id number] Care Team Providers Care Promotional Representative Name Role Phone Unavailable Primary Care Provider Unavailabl e Social History Tobacco Use Types Packs/Day Years Used Date Smoking Tobacco: Never Assessed Comments Unknown Sex and Gender Information Value Date Recorded Sex Assigned at Not on file Legal Sex Female 9:27 AM EDT Gender Identity Not on file Sexual Orientation Not on file Plan of Treatment Health Maintenance Due Date Last Done Comments Cologuard 1950 Colonoscopy 1950 Colorectal Cancer Screening 1950 FIT 1950 Hepatitis C Virus (HCV) Screening 06/18/1972 Breast Cancer Screening 06/18/2001 Pneumococcal Vaccine: 50+ Years (1 of 1 - PCV) 002 Zoster-RZV(Shingrix) (1 of 2) 06/18/2001 Fall Risk Assessment 06/18/2016 Osteoporosis Screening 06/18/2016 Advance Care Planning 02/13/2024 Depression Screening 02/13/2024 COVID-19 Vaccine ( - 2023- season) 2024 Influenza Vaccination (#1) 2024 Lipid Monitoring 10/14/2025 10/14/2024 RSV Vaccines (1 - 1-dose 75+ series) 06/18/2026 Tetanus Vaccination (Every 10 Years) 11/15/203305/2023 Lipid Screening Discontinued 10/14/2024 [address] [id number] [facility]
--- OUTSIDE RECORDS SUMMARY | 2024-10-24 19:31 | XMS_ITS | Encounter Summary ---
Author Organization [facility] Address [address] [place] [address] Care Team Providers Care Investigation Specialist Name Role Phone System, Provider Not In MD Primary Care Provider Unavailable Encounter Details Date Type Department Care Team (Late st Contact Info) Description 10/14/2024 Orders Only External Location [address] [place] [address] Provider, External Social History Tobacco Use Types Packs/Day Years Used Date Smoking Tobacco: Never Assessed Humiliation, Afraid, Rape, and Kick questionnair e Answer Date Recorded Within the last year, have y ou been afraid of your partner or ex-partner? No 10/15/2024 Within the last year, have y ou been humiliated or emotionally abused in other ways by your partner or ex-partner? No Within the last year, have y ou been kicked, hit, slapped, or otherwise physically hurt by your partner or ex-partner? No 10/15/2024 Within the last year, have y ou been raped or forced to have any kind of sexual activity by your partner or ex-partner? No 10/15/2024 Hunger Vital Sign Answer Date Recorded Within the past 12 months, y ou worried that your food would run out before you got the money to buy more. Never true 10/16/19 25 Within the past 12 months, t he food you bought just didn't last and you didn't have money to get more. Never true 10/15/2024 PRAPARE - Transportation Answer Date Re corded In the past 12 months, has l ack of transportation kept you from medical appointments or from getting medications? No 04/2024 In the past 12 months, has l ack of transportation kept you from meetings, work, or from getting things needed for daily living? No 10/15/2024 Housing Stability Vital Sign Answer Thomas e Recorded In the last 12 months, was t here a time when you were not able to pay the mortgage or rent on time? No 10/15/2024 In the past 12 months, how m any times have you moved where you were living? 0 10/15/2024 At any time in the past 12 m onths, were you homeless or living in a group home (including now)? No 10/15/2024 [facility] Utilities Answer Date Recorded In the past 12 months has th e [employer], gas, oil, or water company threatened to shut off services in your home? No 10/15/2024 Comments Unknown Sex and Gender Information Value Date Recorded Sex Assigned at Not on file Legal Sex Female 2:33 AM EDT Gender Identity Not on file Sexual Orientation Not on file documented as of this encounter Functional Status * Calculated C-SSRS Risk Score (Lifetime/Recent) Answer Date of Assessment Author No Risk Indicated 10/16/2024 8:00 PM EDT Dunia Rosario RN * Question Answer Date of Assessment Author 1. Wish to be (Past 1 Month) No 025 8:00 PM EDT Dunia Rosario RN 2. Non-Specific Active Suici cheyenne Thoughts (Past 1 Month) No 10/16/2024 8:00 PM EDT Cabrera Rosario RN 6. Suicidal Behavior (Lifetime) No 8:00 PM EDT Dunia Rosario RN documented as of this encounter Plan of Treatment Not on file documented as of this encounter Procedures Procedure Name Priority Date/Time Associated Diagnosis Comments CT OUTSIDE IMAGES 10/14/2024 2:04 AM EDT documented in this encounter Results * CT OUTSIDE IMAGES (10/14/2024 2:04 AM EDT) Anatomical Region Laterality Modality Computed Tomogra phy 10/14/2024 2:04 AM EDT us External Provider IMG CT PROCEDURES Final Result documented in this encounter Visit Diagnoses Not on filedocumented in this encounter Additional Health Concerns Assessment Noted Time A Body Mass Index follow-up plan has been documented for the patient 10/17/2024 1:17 PM EDT documented as of this encounter Care Teams Investigation Specialist Relationship Specialty Start Date End Date System, Provider Not In, [place] [address] PCP - General Family Medicine 10/14/24 documented as of this encounter
--- OUTSIDE RECORDS SUMMARY | 2024-10-24 19:31 | XMS_ITS ---
Author Organization [facility] Care Team Providers Care Motivational Speaker Name Role Phone Dino Verasn Unavailable Unavailable Eben Hand Unavailable Unavailable Allergies and adverse reactions Code CodeSystem Substance Reaction Severity StartDate Concern Status 7052 RXNORM Morphine Moderate 10/17/2024 active 3640 RXNORM Doxycycline Moderate 10/17/2024 active Care Team Name Role Address Phone Organization Dates Eben Hand PCP [address], [place], [address], [place] (Office): : [facility] 10/17/2024 - present Michelle Veras [address] [place], [address], [place]Office): [facility] 10/17/2024 - present Functional Status Code Name Recorded Time Value Entered By Bathing 10/18/2024 Not assessed - Medications Section Medication Name Status Code CodeSystem Dose Route Frequency Admin Type Sig Text Start Date End Date Tylenol Oral Tablet 325 MG aborted 20920918 RXNORM 1 tablet Oral as needed PRN Give 1 tablet by mouth every 6 hours as needed for pain 10/18 Lactulose Solution 10 GM/15ML active 320583 RXNORM 45 ml Oral as needed PRN Give 45 ml by mouth as needed for Consti pation - No BM for three (3) days. Give 1 dose. If no result s within 12 hours, see Fleets or Soap suds enema order. 2024 - Fleet Enema Enema 7-19 GM/118ML active 267148 RXNORM 1 applic ation Rectal as needed PRN Insert 1 applic ation rectal ly as needed for Kassi reynoso Give 1 every hour X 2 doses if No Result s from Lactul ose within 12 hours. If still no result s, notify MD. 2024 - Polyethylene Glycol 3350 Oral Packet 17 GM active 322838 RXNORM 1 packet Oral two times a day Routine Give 1 packet by mouth two times a day for kassi reynoso 2024 - HYDROcodone-A cetaminophen Oral Tablet 5-325 MG active 810584 RXNORM 1 tablet Oral as needed PRN Give 1 tablet by mouth every 8 hours as needed for pain 2024 - Cyclobenzapri ne HCl Oral Tablet 7.5 MG aborted 437265 RXNORM 1 tablet Oral three times a day Routine Give 1 tablet by mouth three times a day for muscle spasm 10/18 Ibuprofen Oral Tablet 600 MG active 766448 RXNORM 1 tablet Oral as needed PRN Give 1 tablet by mouth every 8 hours as needed for pain 2024 - Naloxone HCl Liquid 4 MG/0.1ML active 979236 9 RXNORM 0.4 mg/ml Nasal as needed PRN 0.4 mg/ml Altern ating nostri ls every 2 minute s as needed for sign of opioid overdo se Maybe repeat ed every two (2)to three( 3)lester cherise for unresp onsive ness or diffic ulty breath ing,un til indivi dual is breath ing (respi ratory rate greate r than 10)Ini tiate emerge ncy medica l respon se protoc ol (e.g., call91 1)and transf er to the hospit al 2024 - Senna Oral Tablet 8.6 MG active 2 tablet Oral two times a day Routine Give 2 tablet by mouth two times a day for kassi reynoso 2024 - Labetalol HCl Oral Tablet 100 MG active 523929 RXNORM 1 tablet Oral two times a day Routine Give 1 tablet by mouth two times a day for HTN 2024 - Lidocaine External Patch 5 % aborted 139778 1 RXNORM n/a n/a Topical every 12 hours Routine Apply to LOWER BACK topica lly every 12 hours for PAIN and remove per schedu le 10/18 Ursodiol Oral Capsule 300 MG active 103069 RXNORM 1 capsul e Oral two times a day Routine Give 1 capsul e by mouth two times a day for To lower the choles tirol 2024 - Lidocaine External Patch 4 % active 959278 4 RXNORM n/a n/a Topical one time a day Routine Apply to lower back topica lly one time a day for lower back pain and remove per schedu le 2024 - Acetaminophen Tablet 325 MG active 324280 RXNORM 2 tablet Oral as needed PRN Give 2 tablet by mouth every 6 hours as needed for Mild Pain More than 3 doses in 48 hours, notify physic [place] ce provid er(YVON ).Do not exceed 3g/day . (stand ing order) 2024 - Cyclobenzapri ne HCl Oral Tablet 7.5 MG active 949674 RXNORM 7.5 mg Oral every 8 hours Routine Give 7.5 mg by mouth every 8 hours for inflam mation 2024 - Ketorolac Tromethamine Injection Solution 30 MG/ML active 296720 RXNORM 60 mg Intramu scular one time only One Time Only Inject 60 mg intram uscula rly one time only for pain for 1 Day 10/19 HYDROcodone-A cetaminophen Oral Tablet 10-325 MG active 877078 RXNORM 1 tablet Oral as needed PRN Give 1 tablet by mouth every 6 hours as needed for Pain 2024 - Ketorolac Tromethamine Injection Solution 30 MG/ML active 495725 RXNORM 30 mg Intramu scular as needed PRN Inject 30 mg intram uscula rly every 6 hours as needed for lower back pain 2024 - Problems Problem # Description Date of onset Resolved Date Code CodeSystem Concern Status 1 OTHER SPECIFIED DISORDERS OF BONE, OTHER SITE 10/17/[address] active Reason for Referral No Reasons for Referral Entered Social History Social History Observation Description Start Date End Date Code Code System Current Smoking Status Tobacco smoking consumption unknown 405739492 SNOMED CT Sex Assigned At Female 1950 24639-9 [facility] Gender Identity Vital Signs Code Code System Vitals Name Values and Units Timing Information 79563-7 [facility] Pain Level Value=7.0 10/18/2024 69254-0 [facility] O2 % BldC Oximetry Value=96.0 Units= % 10/18/2024 8462-4 [facility] Blood Pressure-Diastolic Value=68 Un its=mmHg 10/18/2024 8480-6 [facility] Blood Pressure-Systolic Dkqil=578 Un its=mmHg 10/18/2024 8867-4 [facility] Heart rate Value=71.0 Units=/min 07/2024 9279-1 [facility] Respiratory Rate Value=18.0 Units=/m in 10/18/2024 8310-5 [facility] Body Temperature Value=98.5 Units= F 10/18/2024 91058-6 [facility] Weight Pjkbk=170.4 Units=Lbs 07/2024 8302-2 [facility] Height Value=63.0 Units=Inches 10/18/2024
--- OUTSIDE RECORDS SUMMARY | 2024-10-24 19:31 | XMS_ITS ---
Author Organization [facility] Care Team Providers Care Platform Mill Supervisor Name Role Phone Dino Verasn Unavailable Unavailable Eben Hand Unavailable Unavailable Allergies and adverse reactions Code CodeSystem Substance Reaction Severity StartDate Concern Status 7052 RXNORM Morphine Moderate 10/17/2024 active 3640 RXNORM Doxycycline Moderate 10/17/2024 active Care Team Name Role Address Phone Organization Dates Eben Hand PCP [address], [place], [address], [place]Office[place] : [facility] 10/17/2024 - 10/18/2024 Michelle Veras [address] [place], [address], [place]Office[place] [facility] 10/17/2024 - 10/18/2024 Goals Section Goals Description Status Target Date Pain will be managed with goal range. Active 01/15/2025 Prevent/heal wounds and prevent avoidable skin b reakdown. Active 01/15/2025 The resident will be able to return to the commu nity. Active 01/15/2025 The resident will be free of any discomfort or adverse side effects from pain medication through the review date. Active 01/15/2025 Will achieve/maintain maximum functional mobilit y. Active 01/15/2025 Will attend/participate in activities of choice. Active 01/15/2025 Will continue to remain free from falls. Active 01/15/2025 Functional Status Code Name Recorded Time Value Entered By Bathing 10/18/2024 Total Dependence [facility] Medications Section Medication Name Status Code CodeSystem Dose Route Frequency Admin Type Sig Text Start Date End Date HYDROcodone-A cetaminophen Oral Tablet 5-325 MG active 846415 RXNORM 1 tablet Oral as needed PRN Give 1 tablet by mouth every 8 hours as needed for pain 2024 - Lidocaine External Patch 5 % aborted 242927 1 RXNORM n/a n/a Topical every 12 hours Routine Apply to LOWER BACK topica lly every 12 hours for PAIN and remove per schedu le 10/18 Tylenol Oral Tablet 325 MG aborted 412781 RXNORM 1 tablet Oral as needed PRN Give 1 tablet by mouth every 6 hours as needed for pain 10/18 Labetalol HCl Oral Tablet 100 MG active 631664 RXNORM 1 tablet Oral two times a day Routine Give 1 tablet by mouth two times a day for HTN 2024 - Naloxone HCl Liquid 4 MG/0.1ML active 804836 9 RXNORM 0.4 mg/ml Nasal as needed [...] er to the hospit al 2024 - Polyethylene Glycol 3350 Oral Packet 17 GM active 339808 RXNORM 1 packet Oral two times a day Routine Give 1 packet by mouth two times a day for consti pation 2024 - Ursodiol Oral Capsule 300 MG active 210346 RXNORM 1 capsul e Oral two times a day Routine Give 1 capsul e by mouth two times a day for To lower the choles tirol 2024 - Cyclobenzapri ne HCl Oral Tablet 7.5 MG active 986487 RXNORM 7.5 mg Oral every 8 hours Routine Give 7.5 mg by mouth every 8 hours for inflam mation 2024 - Lactulose Solution 10 GM/15ML active 294915 RXNORM 45 ml Oral as needed PRN Give 45 ml by mouth as needed for Kassi reynoso - No BM for three (3) days. Give 1 dose. If no result s within 12 hours, see Fleets or Soap suds enema order. 2024 - HYDROcodone-A cetaminophen Oral Tablet 10-325 MG active 724037 RXNORM 1 tablet Oral as needed PRN Give 1 tablet by mouth every 6 hours as needed for Pain 2024 - Ibuprofen Oral Tablet 600 MG active 989709 RXNORM 1 tablet Oral as needed PRN Give 1 tablet by mouth every 8 hours as needed for pain 2024 - Cyclobenzapri ne HCl Oral Tablet 7.5 MG aborted 197406 RXNORM 1 tablet Oral three times a day Routine Give 1 tablet by mouth three times a day for muscle spasm 10/18 Lidocaine External Patch 4 % active 046209 4 RXNORM n/a n/a Topical one time a day Routine Apply to lower back topica lly one time a day for lower back pain and remove per schedu le 2024 - Senna Oral Tablet 8.6 MG active 2 tablet Oral two times a day Routine Give 2 tablet by mouth two times a day for kassi reynoso 2024 - Ketorolac Tromethamine Injection Solution 30 MG/ML active 481641 RXNORM 30 mg Intramu scular as needed PRN Inject 30 mg intram uscula rly every 6 hours as needed for lower back pain 2024 - Ketorolac Tromethamine Injection Solution 30 MG/ML complete d 931937 RXNORM 60 mg Intramu scular one time only One Time Only Inject 60 mg intram uscula rly one time only for pain for 1 Day 10/19 Acetaminophen Tablet 325 MG active 512950 RXNORM 2 tablet Oral as needed PRN Give 2 tablet by mouth every 6 hours as needed for Mild Pain More than 3 doses in 48 hours, notify physic [place] hu ce provid er(YVON ).Do not exceed 3g/day . (stand ing order) 2024 - Fleet Enema Enema 7-19 GM/118ML active 026631 RXNORM 1 applic ation Rectal as needed PRN Insert 1 applic ation rectal ly as needed for Consti pation Give 1 every hour X 2 doses if No Result s from Lactul ose within 12 hours. If still no result s, notify . 2024 - Problems Problem # Description Date of onset Resolved Date Code CodeSystem Concern Status 1 OTHER SPECIFIED DISORDERS OF BONE, OTHER SITE 10/17/[address] active Reason for Referral No Reasons for Referral Entered Social History Social History Observation Description Start Date End Date Code Code System Current Smoking Status Tobacco smoking consumption unknown 621918657 SNOMED CT Sex Assigned At Female 1950 59228-0 [facility] Gender Identity Vital Signs Code Code System Vitals Name Values and Units Timing Information 30529-8 [facility] Pain Level Value=7.0 10/18/2024 14094-9 [facility] O2 % BldC Oximetry Value=96.0 Units= % 10/18/2024 8462-4 [facility] Blood Pressure-Diastolic Value=68 Un its=mmHg 10/18/2024 8480-6 [facility] Blood Pressure-Systolic Vgaqb=453 Un its=mmHg 10/18/2024 8867-4 [facility] Heart rate Value=71.0 Units=/min 07/2024 9279-1 [facility] Respiratory Rate Value=18.0 Units=/m in 10/18/2024 8310-5 [facility] Body Temperature Value=98.5 Units= F 10/18/2024 83528-3 [facility] Weight Lbepe=413.4 Units=Lbs 07/2024 8302-2 [facility] Height Value=63.0 Units=Inches 10/18/2024
--- OUTSIDE RECORDS SUMMARY | 2024-10-24 19:31 | XMS_ITS | Encounter Summary ---
Author Organization [facility] Health Address [address] [place] [address] Care Team Providers Care Cell Changer Name Role Phone Unavailable Primary Care Provider Unavailabl e Prior Encounters Date Type Department Care Team Description 03/03/2019 Converted CPS Chart Documents [facility] [address] [place] [id number] <No scans attached> 03/03/2019 Converted 13x Documents [facility] [address] [place] [id number] <No scans attached> Plan of Treatment Not on file Procedures Procedure Name Priority Date/Time Associated Diagnosis Comments MISSED APPOINTMENT Routine 02/19/2018 2: 00 AM BRAND REPRESENTATIVE 2 DO AMALGAM 2 SURFACE Routine 8 2:00 AM CDT 8 ENDODONTIC THERAPY, ANTERIOR TOOTH (EXCLUDING FINAL SABIANIST) Routine 08/03/2017 2:00 AM CDT [address] [...]
--- OUTSIDE RECORDS SUMMARY | 2024-10-24 19:31 | XMS_ITS | Encounter Summary ---
Author Organization Healthcare Address [address] [place] [address] Care Team Providers Care Rehabilitation Services Counselor Name Role Phone System, Provider Not In MD Primary Care Provider Unavailable Encounter Details Date Type Department Care Team (Late st Contact Info) Description 10/14/2024 - 10/14/2024 2:52 AM EDT Emergency [facility] [address] [place] [address] Discharge Disposition: ED Reg Error Social History Tobacco Use Types Packs/Day Years [...] any time in the past 12 m [facility], were you homeless or living in a correction (including now)? No 10/15/2024 [facility] Utilities Answer Date Recorded In the past 12 months has th e electric, gas, oil, or water company threatened to shut off services in your home? No 10/15/2024 Comments Unknown Sex and Gender Information Value Date Recorded Sex Assigned at Not on file Legal Sex Female 2:33 AM EDT Gender Identity Not on file Sexual Orientation Not on file documented as of this encounter Medications at Time of Discharge cyclobenzaprine (Fexmid) 7.5 MG tablet Take 1 tablet by mouth 3 times a day. 10/17/2024 polyethylene glycol (Miralax) 17 g packet Take 17 g by mouth 2 times a day. 10/17/2024 senna (Senokot) 8.6 MG tablet Take 2 tablets by mouth 2 times a day. 10/17/2024 acetaminophen (Tylenol) 325 MG tablet Take 2 tablets by mouth every 6 hours as needed for pain for up to 6 days. Under [place] law, monthly prescriptions (30 days) can be refilled at 25 days and three-month prescriptions (90 days) at 80 days. Please contact the insurance company with questions if refills are denied. 10/17/2024 documented as of this encounter Plan of Treatment Not on file documented as of this encounter Visit Diagnoses Not on filedocumented in this encounter Additional Health Concerns Assessment Noted Time A Body Mass Index follow-up plan has been documented for the patient 10/17/2024 1:17 PM EDT documented as of this encounter Care Teams Rehabilitation Services Counselor Relationship Specialty Start Date End Date System, Provider Not In, [place] [address] PCP - General Family Medicine 10/14/24 documented as of this encounter
--- OUTSIDE RECORDS SUMMARY | 2024-10-24 19:31 | XMS_ITS | Patient Health Record ---
Author Organization [facility] Address [address] [place] [address] Care Team Providers Care Assistant Name Role Phone PCP, Does Not Have a Primary Care Provider Unava ilable _Gibran Hartman Unavailable REASON FOR REFERRAL No Information Encounters Encounter Location Date Provider Diagnosis [facility] [address] [place] [address] 05/18/2024 [facility] PLAN OF TREATMENT No Information Insurance Providers Payer Name Payer Address Payer Phone Subscriber Number Group Number Insured Name Patient Relationship to Insured Coverage Start Date Coverage End Date MEDICARE [place] [address] [place] [id number] [phone] [id number] NATHANIEL PÉREZ Self - patient is the insured
--- OUTSIDE RECORDS SUMMARY | 2024-10-24 19:31 | XMS_ITS | Clinical Summary ---
Author Organization [facility] Health Address [address] [place] [address] Care Team Providers Care Armored Machine Operator Name Role Phone Unavailable Primary Care Provider [...]
--- OUTSIDE RECORDS SUMMARY | 2024-10-24 19:31 | XMS_ITS | Encounter Summary ---
Author Organization Healthcare Address [address] [place] [address] Care Team Providers Care Box Printer Name Role Phone System, Provider Not In MD Primary Care Provider Unavailable Encounter Details Date Type Department Care Team (Latest Contact Info) Description 10/15/2024 Travel Social History Tobacco Use Types Packs/Day Years [...] any time in the past 12 m [facility], were you homeless or living in a senior care (including now)? No 10/15/2024 [facility] Utilities Answer Date Recorded In the past 12 months has e [employer], gas, oil, or water company threatened to [...] Date of Assessment Author No Risk Indicated 10/15/2024 8:00 PM EDT Dunia Rosario RN * Question Answer Date of Assessment Author 1. Wish to be (Past 1 Month) No 025 8:00 PM EDT Dunia Rosario RN 2. Non-Specific Active Suici [place] Thoughts (Past 1 Month) No 10/15/2024 8:00 PM EDT Cabrera Rosario RN 6. Suicidal Behavior (Lifetime) No 5 8:00 PM EDT Dunia Rosario RN documented as of this encounter Plan of Treatment Not on file documented as of this encounter Visit Diagnoses Not on filedocumented in this encounter Additional Health Concerns Assessment Noted Time A Body Mass Index follow-up plan has been documented for the patient 10/17/2024 1:17 PM EDT documented as of this encounter Care Teams Box Printer Relationship Specialty Start Date End Date System, Provider Not In, [place] [address] PCP - General Family Medicine 10/14/24 documented as of this encounter
--- OUTSIDE RECORDS SUMMARY | 2024-10-24 19:31 | XMS_ITS | Clinical Summary ---
Author Organization [facility] Address [address] 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 lidocaine (Lidoderm) 5 % patch Apply 1 patch topically daily over 12 hours. Remove & discard patch within 12 hours or as directed by MD. 30 patch 10/15/19 25 Active HYDROcodone-ac etaminophen (Cameron) 5-325 MG tablet Take 1 tablet by mouth every 8 hours as needed for severe pain. 6 tablet 10/15/19 25 Active naloxone (Narcan) 4 mg/0.1 mL nasal spray 1. Give 1 spray in nostril for no/slow breathing or cannot wake after opioid use 2. Call 911 3. Repeat in other nostril if symptoms continue 1 each 10/15/19 25 Active labetalol (Normodyne) 100 MG tablet Take 1 tablet by mouth 2 times a day. Active Bempedoic Acid-Ezetimibe (Nexlizet) 180-10 MG tablet Take 1 tablet by mouth daily. Active ursodiol (Actigall) 300 MG capsule Take 1 capsule by mouth 2 times a day. Active cyclobenzaprin e (Fexmid) 7.5 MG tablet Take 1 tablet by mouth 3 times a day. 10/18/19 25 Active polyethylene glycol (Miralax) 17 g packet Take 17 g by mouth 2 times a day. 10/18/19 25 Active senna (Senokot) 8.6 MG tablet Take 2 tablets by mouth 2 times a day. 10/18/19 25 Active methocarbamol (Robaxin) 750 MG tablet Take 1 tablet by mouth 4 times a day for 10 days. 40 tablet 10/15/19 25 025 Discontinu ed(Stop Taking at Discharge) ibuprofen 600 MG tablet Take 1 tablet by mouth every 8 hours as needed for mild pain for up to 7 days. 21 tablet 10/15/19 25 025 acetaminophen (Tylenol) 325 MG tablet Take 2 tablets by mouth every 6 hours as needed for pain for up to 6 days. Under [place] law, monthly prescriptions (30 days) can be refilled at 25 days and three-month prescriptions (90 days) at 80 days. Please contact the insurance company with questions if refills are denied. 10/18/19 Active Problems Problem Noted Date Diagnosed Date Acute right-sided low back pain without sciatica 10/15/2024 Enterovirus enteritis 10/14/2024 Encounters * This document contains information received from the source organization and may not represent a complete record from that organization. Date Type Department Care Team Description 10/15/2024 Travel 10/14/2024 Travel 10/14/2024 - 10/14/2024 2:52 AM EDT Emergency [facility] [address] [place] [address] Discharge Disposition: ED Reg Error 10/14/2024 Orders Only External Location [address] [place] [address] Provider, External from Last 3 Months Immunizations Immunization Administration Dates Next Due Tdap 11/16/2023 Social History Tobacco Use Types Packs/Day Years [...] any time in the past 12 m [facility], were you homeless or living in a long term (including now)? No 10/15/2024 [facility] Utilities Answer Date Recorded In the past 12 months has th e electric, gas, oil, or water company threatened to shut off services in your home? No 10/15/2024 Comments Unknown Sex and Gender Information Value Date Recorded Sex Assigned at Not on file Legal Sex Female 2:33 AM EDT Gender Identity Not on file Sexual Orientation Not on file Last Filed Vital Signs Vital Sign Reading Time Taken Comments Blood Pressure 152/85 10/17/2024 11:43 AM EDT Pulse 62 10/17/2024 11:43 AM EDT Temperature 36.7 C (98.1 F) 10/17/2024 11:43 AM EDT Respiratory Rate 16 10/17/2024 11:4 3 AM EDT Oxygen Saturation 97% 10/17/2024 11: 43 AM EDT Inhaled Oxygen Concentration - - Weight 97.5 kg (214 lb 15.2 oz) 10/15/2024 8:00 AM EDT Height - - Body Mass Index - - Plan of Treatment Health Maintenance Due Date Last Done Comments [facility]-Bone Density Scan 1950 [facility]-Depression Screening 1950 [facility]-Hepatitis C Screening 1950 [facility]-Medicare Annual Wellness (AWV) 1950 [facility]-/Child/Adol SDOH Screenings 1950 [address] Colonography 06/18/1996 Colonoscopy 06/18/1996 FIT-DNA 06/18/1996 FIT 06/18/1996 FOBT 06/18/1996 Sigmoidoscopy 06/18/1996 [facility]-Colorectal Cancer Screening 06/18/1996 [facility]-Breast Cancer Screening 06/18/2001 [facility]-Pneumococcal Vaccine: 50 + Years (1 of 1 - PCV) 06/18/2001 [facility]-Zoster Vaccines (1 of 2) 06/18/2001 [id number] Vaccine (1 - 20 24-25 season) 2024 [facility]-Influenza Vaccine (#1) 2024 [facility]- SDOH Screenings 04/14/2025 [facility]-Adult SDOH Screenings 04/14/2025 10/15/2024 [facility]-RSV Vaccine: 60+ Years o r (1 - 1-dose 75+ series) 06/18/2026 [facility]-DTaP,Tdap,and Td Vaccine s (2 - Td or Tdap) 11/15/2033 11/16/2023 [facility]-Obesity Intervention Completed 10/14/2024 HPV Vaccines Aged Out No longer eligi ble based on patient's age to complete this topic [facility]-HIB Vaccines Aged Out No longer e ligible based on patient's age to complete this topic [facility]-Hepatitis A Vaccines Aged Out No longer eligible based on patient's age to complete this topic [facility]-IPV Vaccines Aged Out No longer e ligible based on patient's age to complete this topic [facility]-Rotavirus Vaccines Aged Out No lo nger eligible based on patient's age to complete this topic Procedures Procedure Name Priority Date/Time Associated Diagnosis Comments HIV 1/2 ANTIBODY/ANTIGEN SCREEN WITH REFLEX TO HIV I/II DIFFERENTIATION Pending Discharge 10/16/2024 4:01 AM EDT TREPONEMA PALLIDUM (SYPHILIS) ANTIBODIES WITH REFLEX TO RPR AND RPR TITER (THOSE WITH NO KNOWN SYPHILIS) Pending Discharge 10/16/2024 4:01 AM EDT HIV 1/2 ANTIBODY/ANTIGEN SCREEN W/REFLEX TO HIV 1/2 ANTIBODY DIFFERENTIATION Routine 10/16/2024 4:01 AM EDT SEDIMENTATION RATE, AUTOMATED Pending Discharge 10/16/2024 4:01 AM EDT COMPREHENSIVE METABOLIC PANEL, PLASMA Pending Discharge 10/16/2024 4:01 AM EDT C-REACTIVE PROTEIN, PLASMA Pending Discharge 10/16/2024 4:01 AM EDT CBC WITH AUTO DIFFERENTIAL Pending Discharge 10/16/2024 4:01 AM EDT C-REACTIVE PROTEIN, PLASMA Pending Discharge 10/15/2024 12:38 PM EDT ECHO, ADULT TRANSTHORACIC COMPLETE Routine 10/15/2024 11:22 AM EDT URINALYSIS MICROSCOPIC FOR UA REFLEX Routine 10/15/2024 4:44 AM EDT URINE TEJEDA PANEL Routine 10/15/2024 4:44 AM EDT URINALYSIS WITH REFLEX MICROSCOPIC Routine 10/15/2024 4:44 AM EDT URINALYSIS WITH REFLEX MICROSCOPIC AND CULTURE Routine 10/15/2024 4:44 AM EDT CREATINE KINASE, TOTAL, PLASMA Routine 10/15/2024 4:24 AM EDT MAGNESIUM, PLASMA Routine 10/15/2024 4:2 4 AM EDT COMPREHENSIVE METABOLIC PANEL, PLASMA Routine 10/15/2024 4:24 AM EDT CBC WITH AUTO DIFFERENTIAL Routine 10/15/2024 4:24 AM EDT TSH REFLEX FT4 Routine 10/14/2024 4:15 PM EDT LIPID PROFILE, PLASMA Routine 10/14/2024 4:15 PM EDT HEMOGLOBIN A1C Routine 10/14/2024 4:15 PM EDT C-REACTIVE PROTEIN, PLASMA STAT 10/14/2024 4:15 PM EDT PHOSPHORUS, PLASMA STAT 10/14/2024 4: 15 PM EDT MAGNESIUM, PLASMA STAT 10/14/2024 4:1 5 PM EDT PROCALCITONIN, PLASMA STAT 10/14/2024 4:15 PM EDT LACTATE, VENOUS STAT 10/14/2024 4:15 PM EDT CBC WITH AUTO DIFFERENTIAL STAT 10/14/2024 4:15 PM EDT COMPREHENSIVE METABOLIC PANEL, PLASMA STAT 10/14/2024 4:15 PM EDT BLOOD CULTURE (AEROBIC/ANAEROBIC SET) STAT 10/14/2024 4:15 PM EDT BLOOD CULTURE (AEROBIC/ANAEROBIC SET) STAT 10/14/2024 4:15 PM EDT XR CHEST 1 VIEW Routine 10/14/2024 3:[address] LUMBAR SPINE WO IV CONTRAST STAT 10/14/2024 6:[address] OUTSIDE IMAGES 10/14/2024 2:0 4 AM EDT from Last 3 Months Results * Treponema Pallidum (Syphilis) Antibodies with Reflex to RPR and RPR Titer (Those with NO known Syphilis) (10/16/2024 4:01 AM EDT) [facility] Syphilis Antibody (IgG+IgM) Nonreactive Nonreactive 10/16/2024 6:[address] [facility] Comment:Nonreactive. No sero logic evidence of syphilis. No follow-up necessary unless clinically indicated (e.g., early syphilis). Blood Venous blood specimen / Unknown Venipuncture / Unknown 10/16/2024 4:01 AM EDT 10/16/2024 4:25 AM EDT Natalia Evans MD LAB BLOOD ORDERABLES Final R esult Performing Organization Address City/[facility] Co de Phone Number [facility] [address] [place] [address] * HIV 1 & 2 Antibody/Antigen Screen (10/16/2024 4:01 AM EDT) [facility] HIV 1 & 2 Antibody/Antigen Screen Non Reactive Non Reactive 10/16/2024 5:09 AM EDT [facility] Comment:Screening for HIV 1 & 2 antibodies, and P24 antigen is NONREACTIVE. No confirmatory testing is required. Blood Venous blood specimen / Unknown Venipuncture / Unknown 10/16/2024 4:01 AM EDT 10/16/2024 4:25 AM EDT Natalia Evans MD LAB BLOOD ORDERABLES Final R esult Performing Organization Address [facility] de Phone Number [facility] [address] [place] [address] * (ABNORMAL) Sedimentation Rate, Automated (10/16/2024 4:01 AM EDT) [facility] Sedimentation Rate 78(H) <30 mm/hr 2024 4:27 AM EDT [facility] Blood Venous blood specimen / Unknown Venipuncture / Unknown 10/16/2024 4:01 AM EDT 10/16/2024 4:21 AM EDT Natalia Evans MD LAB BLOOD ORDERABLES Final R esult Performing Organization Address City/[facility] Co de Phone Number [facility] [address] [place] [address] * (ABNORMAL) CBC and differential (10/16/2024 4:01 AM EDT) Only the most recent of3 resultswithin the time period is included. WBC Count 5.05 3.70 - 10.30 10*3/uL LAB HEMATOLOGY METHOD 10/16/2024 4:30 AM EDT [facility] RBC Count 3.69(L) 3.90 - 5.20 10*6/uL LAB HEMATOLOGY METHOD 10/16/2024 4:30 AM EDT [facility] HGB 11.3 11.2 - 15.7 g/dL LAB HEMATOLOGY METHOD 10/16/2024 4:30 AM EDT [facility] HCT 34.1 34.0 - 45.0 % LAB HEMATOLOGY METHOD 10/16/2024 4:30 AM EDT [facility] Platelet Count 153(L) 155 - 369 10*3/uL LAB HEMATOLOGY METHOD 10/16/2024 4:30 AM EDT [facility] MCV 92 79 - 98 fL LAB HEMATOLOGY METHOD 10/16/2024 4:30 AM EDT [facility] MCH 30.6 26.0 - 32.0 pg LAB HEMATOLOGY METHOD 10/16/2024 4:30 AM EDT [facility] MCHC 33.1 30.7 - 35.5 g/dL LAB HEMATOLOGY METHOD 10/16/2024 4:30 AM EDT [facility] RDW 15.3(H) 11.5 - 14.5 % LAB HEMATOLOGY METHOD 10/16/2024 4:30 AM EDT [facility] MPV 12.6(H) 8.8 - 12.5 fL LAB HEMATOLOGY METHOD 10/16/2024 4:30 AM EDT [facility] nRBC 0.0 <=0.0 per 100 WBCs LAB HEMATOLOGY METHOD 10/16/2024 4:30 AM EDT [facility] Differential Type Automated LAB HEMATOLOGY METHOD 10/16/2024 4:30 AM EDT [facility] Neutrophils % 49 % LAB HEMATOLOGY METHOD 10/16/2024 4:30 AM EDT [facility] Lymphocytes % 32 % LAB HEMATOLOGY METHOD 10/16/2024 4:30 AM EDT [facility] Monocytes % 13 % LAB HEMATOLOGY METHOD 10/16/2024 4:30 AM EDT [facility] Eosinophils % 5 % LAB HEMATOLOGY METHOD 10/16/2024 4:30 AM EDT [facility] Basophils % 1 % LAB HEMATOLOGY METHOD 10/16/2024 4:30 AM EDT [facility] Immature Granulocytes % 0 % LAB HEMATOLOGY METHOD 10/16/2024 4:30 AM EDT [facility] Neutrophils Absolute 2.51 1.60 - 6.10 10*3/uL LAB HEMATOLOGY METHOD 10/16/2024 4:30 AM EDT [facility] Lymphocytes Absolute 1.62 1.20 - 3.90 10*3/uL LAB HEMATOLOGY METHOD 10/16/2024 4:30 AM EDT [facility] Monocytes Absolute 0.64 0.30 - 0.90 10*3/uL LAB HEMATOLOGY METHOD 10/16/2024 4:30 AM EDT [facility] Eosinophils Absolute 0.23 0.00 - 0.50 10*3/uL LAB HEMATOLOGY METHOD 10/16/2024 4:30 AM EDT [facility] Basophils Absolute 0.03 0.00 - 0.10 10*3/uL LAB HEMATOLOGY METHOD 10/16/2024 4:30 AM EDT [facility] Immature Granulocytes Absolute 0.02 0.00 - 0.06 10*3/uL LAB HEMATOLOGY METHOD 10/16/2024 4:30 AM EDT [facility] Blood Venous blood specimen / Unknown Venipuncture / Unknown 10/16/2024 4:01 AM EDT 10/16/2024 4:21 AM EDT Narrative [facility] - 10/16/2024 4:30 AM EDT Therapeutic decision making should be based on absolute values, rather than percentages. Natalia Evans MD LAB BLOOD ORDERABLES Final R esult [facility] [address] [place] [id number] * (ABNORMAL) C-reactive protein (10/16/2024 4:01 AM EDT) Only the most recent of3 resultswithin the time period is included. [facility] Signature CRP, Plasma 110.0(H) <=8.0 mg/L 10/16/2024 4:59 AM EDT [facility] Blood Venous blood specimen / Unknown Venipuncture / Unknown 10/16/2024 4:01 AM EDT 10/16/2024 4:25 AM EDT Narrative [facility] - 10/16/2024 4:59 AM EDT This CRP test is appropriate for assessment of infection, systemic inflammation and/or tissue injury. To assess cardiovascular disease risk order high sensitivity CRP (CRPH). Natalia Evans MD LAB BLOOD ORDERABLES Final R esult [facility] [address] [place] [address] * (ABNORMAL) Comprehensive metabolic panel (10/16/2024 4:01 AM EDT) Only the most recent of3 resultswithin the time period is included. Glucose, Plasma 94 74 - 99 mg/dL 10/16/2024 4:59 AM EDT [facility] BUN, Plasma 10 8 - 23 mg/dL 10/16/2024 4:59 AM EDT [facility] Creatinine, Plasma 0.49(L) 0.60 - 1.10 mg/dL 10/16/2024 4:59 AM EDT [facility] BUN/Creatinine Ratio 20 10/16/2024 4:59 AM EDT [facility] Sodium, Plasma 141 136 - 145 mmol/L 10/16/2024 4:59 AM EDT [facility] Potassium, Plasma 4.3 3.6 - 4.9 mmol/L 10/16/2024 4:59 AM EDT [facility] Chloride, Plasma 107 97 - 107 mmol/L 10/16/2024 4:59 AM EDT [facility] CO2, Plasma 24 22 - 29 mmol/L 10/16/2024 4:59 AM EDT [facility] Anion Gap 10 6 - 16 mmol/L 10/16/2024 4:59 AM EDT [facility] Total Calcium, Plasma 9.2 8.9 - 10.2 mg/dL 10/16/2024 4:59 AM EDT [facility] Total Protein 6.0(L) 6.3 - 7.9 g/dL 10/16/2024 4:59 AM EDT [facility] Albumin, Plasma 3.0(L) 3.5 - 5.2 g/dL 10/16/2024 4:59 AM EDT [facility] AST, Plasma 34 10 - 35 U/L 10/16/2024 4:59 AM EDT [facility] ALT, Plasma 33 10 - 35 U/L 10/16/2024 4:59 AM EDT [facility] Alkaline Phosphatase, Plasma 120 46 - 142 U/L 10/16/2024 4:59 AM EDT [facility] Total Bilirubin, Plasma 1.3(H) 0.2 - 1.1 mg/dL 10/16/2024 4:59 AM EDT [facility] eGFRcr 99.7 mL/min/1.7 3m*2 10/16/2024 4:59 AM EDT [facility] Comment:Reported eGFRcr in m L/min/1.73m2 is based the CKD-EPI 2020 equation that does not use a race coefficient. Blood Venous blood specimen / Unknown Venipuncture / Unknown 10/16/2024 4:01 AM EDT 10/16/2024 4:25 AM EDT Natalia Evans MD LAB BLOOD ORDERABLES Final R esult [facility] [address] [place] [address] * ECHO, ADULT TRANSTHORACIC COMPLETE (10/15/2024 11:22 AM EDT) Height 160.0 DIMITRY ISCV Weight 97.1 DIMITRY ISCV BSA 1.99 m2 DIMITRY ISCV LVIDd 44 mm DIMITRY ISCV LVIDs 24 mm DIMITRY ISCV IVSd 12 mm DIMITRY ISCV LVPWd 12 mm DIMITRY ISCV LV MASS(C)D 191 g DIMITRY ISCV [facility] CV ECHO LV MASS INDEX 96 g/m2 DIMITRY ISCV LV RWT 0.55 mm DIMITRY ISCV LV EDV(MOD-4ch) 114 mL DIMITRY ISCV LV ESV(MOD4ch) 28 mL DIMITRY ISCV EF(MOD-sp4) 75 % DIMITRY ISCV LV EDV(MOD-2ch) 127 mL DIMITRY ISCV LV ESV(MOD2ch) 46 mL DIMITRY ISCV EF(MOD-sp2) 64 % DIMITRY ISCV EDV(MOD-bp) 121 mL DIMITRY ISCV ESV(MOD-bp) 37 mL DIMITRY ISCV EF(MOD-bp) 69 % DIMITRY ISCV LV V1 VTI 24.3 cm DIMITRY ISCV MV E Vmax 106.0 cm/s DIMITRY ISCV MV A Vmax 98.0 cm/s DIMITRY ISCV MV E/A 1.1 cm/s DIMITRY ISCV TR Vmax 154.4 cm/s DIMITRY ISCV LA dimension 44 mm DIMITRY ISCV TAPSE 30 mm DIMITRY ISCV TR Max PG 10 mmHG DIMITRY ISCV PA acc time 130 msec DIMITRY ISCV mean PAP 21 mmHg DIMITRY ISCV LV V1 Vmax 103.0 cm/s DIMITRY ISCV Ao V2 VTI 42.1 cm DIMITRY ISCV Ao mean PG 7 mmHg DIMITRY ISCV Ao V2 Vmax 189.7 cm/s DIMITRY ISCV Ao max PG 14 mmHg DIMITRY ISCV AV VTI Index 0.58 DIMITRY ISCV MV dec time 190 ms DIMITRY ISCV MV P1/2t 55 ms DIMITRY ISCV MVA(P1/2t) 4.0 cm2 DIMITRY ISCV Ao Root Diam 18 mm DIMITRY ISCV PA NE(ACCEL) 21.9 mmHg DIMITRY ISCV LV mean PG 2.0 mmHG DIMITRY ISCV LV V1 mean 67.3 cm/sec DIMITRY ISCV LV max PG 4.2 mmHg DIMITRY ISCV LVLs ap2 6.3 mm DIMITRY ISCV AV-pr VR 0.5 DIMITRY ISCV Ao V2 mean 125.3 cm/s DIMITRY ISCV Anatomical Region Laterality Modality Echocardiography Narrative 10/15/2024 1:45 PM EDT Left Ventricle: The left ventricle is normal size. There is normal left ventricular myocardial thickness and mass. The left ventricular systolic function is hyperdynamic with an estimated left ventricular ejection fraction of >70%. There is no recent study available for direct [id number] comparison. Left Ventricle The left ventricle is normal size. There is normal left ventricular myocardial thickness and mass. The left ventricular systolic function is hyperdynamic with an estimated left ventricular ejection fraction of >70%. The left ventricular wall motion is normal. Right Ventricle The right ventricle is normal in size. The right ventricular systolic function is normal. Right ventricular systolic pressure is normal (<35mmHg). Left Atrium The left atrium is dilated by visual assessment. The interatrial septum is intact with no evidence for an atrial septal defect. Right Atrium The right atrial size is normal. IVC/SVC The IVC was not well visualized, and an assumed pressure of 8mmHg was used for calculations. Mitral Valve The mitral valve leaflets are normal in appearance with no evidence of mitral valve prolapse. There is mild mitral annular calcification. There is no mitral valve vegetation. There is no mitral regurgitation. There is no mitral stenosis. Tricuspid Valve The tricuspid valve is normal in appearance. There is no tricuspid valve vegetation. There is trace tricuspid regurgitation. There is no tricuspid stenosis. Aortic Valve The aortic valve appears to be trileaflet. There is calcification of the aortic valve leaflets. There is aortic annular calcification present. There is no aortic valve vegetation. There is no valvular regurgitation. There is calcific aortic sclerosis without hemodynamically significant aortic stenosis. Pulmonic Valve The pulmonic valve is normal in appearance. There is no pulmonic valve vegetation. There is trace pulmonic regurgitation. There is no pulmonic stenosis. Pericardium No pericardial effusion. Great Vessels The aortic root is normal in size. The sinus of Valsalva (aortic root) diameter is 18 mm by leading edge to leading edge method. In the maximally visualized portion, the ascending aorta appears normal in size. In the maximally visualized portion, the aortic arch appears normal in size. The main pulmonary artery is not well visualized. Study Details A complete transthoracic echocardiogram using two-dimensional (2D), m-mode, color and spectral flow Doppler imaging was performed. During the study the apical, parasternal, subcostal and suprasternal view was captured. Overall the study quality was poor. Height: 160.0 cm. Weight: 97.1 kg. BSA: 1.99 m2. Study Recommendation There is no recent study available for direct [id number] comparison. Isaac Sutton MD CV ECHO PROCEDURES Final Result * Urine Tejeda Panel (10/15/2024 4:44 AM EDT) Extra Reflex urine culture not indicated 10/15/2024 6:02 AM EDT [facility] Urine Urine specimen obtained by clean catch procedure / Unknown Non-blood Collection / Unknown 10/15/2024 4:44 AM EDT 10/15/2024 5:01 AM EDT Natalia Evans MD LAB URINE ORDERABLES Final R esult [facility] [address] [place] [address] * Urinalysis Microscopic Examination (10/15/2024 4:44 AM EDT) Urine Urine specimen obtained by clean catch procedure / Unknown Non-blood Collection / Unknown 10/15/2024 4:44 AM EDT 10/15/2024 5:01 AM EDT Natalia Evans MD LAB URINE ORDERABLES Final R esult [facility] [address] [place] [address] * (ABNORMAL) Urinalysis with reflex microscopic (Culture NOT Included) (10/15/2024 4:44 AM EDT) Color, Urine Yellow LAB URINALYSIS - AUTOMATED METHOD 10/15/2024 5:21 AM EDT [facility] Clarity, Urine Clear LAB URINALYSIS - AUTOMATED METHOD 10/15/2024 5:21 AM EDT [facility] Spec [place], Urine 1.011 1.005 - 1.030 LAB URINALYSIS - AUTOMATED METHOD 10/15/2024 5:21 AM EDT [facility] pH, Urine 6.5 5.0 - 8.0 LAB URINALYSIS - AUTOMATED METHOD 10/15/2024 5:21 AM EDT [facility] Protein, Urine Negative Negative mg/dL LAB URINALYSIS - AUTOMATED METHOD 10/15/2024 5:21 AM EDT [facility] Glucose, Urine Negative Negative mg/dL LAB URINALYSIS - AUTOMATED METHOD 10/15/2024 5:21 AM EDT [facility] Ketones, Urine Negative Negative mg/dL LAB URINALYSIS - AUTOMATED METHOD 10/15/2024 5:21 AM EDT [facility] Blood, Urine Negative Negative LAB URINALYSIS - AUTOMATED METHOD 10/15/2024 5:21 AM EDT [facility] Bilirubin, Urine Negative Negative LAB URINALYSIS - AUTOMATED METHOD 10/15/2024 5:21 AM EDT [facility] Urobilinogen, Urine 0.2 0.2 to 1.0 mg/dL LAB URINALYSIS - AUTOMATED METHOD 10/15/2024 5:21 AM EDT [facility] Leukocytes, Urine Small(A) Negative LAB URINALYSIS - AUTOMATED METHOD 10/15/2024 5:21 AM EDT [facility] Nitrite, Urine Negative Negative LAB URINALYSIS - AUTOMATED METHOD 10/15/2024 5:21 AM EDT [facility] RBC, Urine <1 0 to 3 /HPF 10/15/2024 5:21 AM EDT [facility] Comment:This result was prev iously suppressed from the chart. WBC, Urine 6 - 10(A) 0 to 5 /HPF 10/15/2024 5:21 AM EDT [facility] Comment:This result was prev iously suppressed from the chart. Squamous Epithelial Cells 3 - 5 0 to 5 /HPF 10/15/2024 5:21 AM EDT [facility] Comment:This result was prev iously suppressed from the chart. Hyaline Casts 0 - 2 0 to 5 /LPF 10/15/2024 5:21 AM EDT [facility] Comment:This result was prev iously suppressed from the chart. Bacteria, Urine Present Negative 10/15/2024 5:21 AM EDT [facility] Comment:This result was prev iously suppressed from the chart. Urine Urine specimen obtained by clean catch procedure / Unknown Non-blood Collection / Unknown 10/15/2024 4:44 AM EDT 10/15/2024 5:01 AM EDT Narrative [facility] - 10/15/2024 5:21 AM EDT Performed by manual method Natalia Evans MD LAB URINE ORDERABLES Final R esult Performing Organization Address City/State/[facility] Co de Phone Number [facility] [address] [place] [address] * Creatine Kinase, Total, Plasma (10/15/2024 4:24 AM EDT) Creatine Kinase, Plasma 134 37 - 168 U/L 10/15/2024 5:27 AM EDT [facility] Blood Venous blood specimen / Unknown Venipuncture / Unknown 10/15/2024 4:24 AM EDT 10/15/2024 5:00 AM EDT Natalia Evans MD LAB BLOOD ORDERABLES Final R esult Performing Organization Address [facility] de Phone Number [facility] [address] [place] [address] * Magnesium (10/15/2024 4:24 AM EDT) Only the most recent of2 resultswithin the time period is included. Magnesium, Plasma 2.2 1.9 - 2.4 mg/dL 10/15/2024 5:27 AM EDT [facility] Blood Venous blood specimen / Unknown Venipuncture / Unknown 10/15/2024 4:24 AM EDT 10/15/2024 5:00 AM EDT Natalia Evans MD LAB BLOOD ORDERABLES Final R esult Performing Organization Address [facility] de Phone Number HEALTHCARE LAB [address] [place] [address] * TSH Reflex FT4 (10/14/2024 4:15 PM EDT) Thyroid Stimulating Hormone, Plasma 0.43 0.40 - 4.20 uIU/mL 10/14/2024 4:52 PM EDT [facility] Blood Venous blood specimen / Unknown Venipuncture / Unknown 10/14/2024 4:15 PM EDT 10/14/2024 4:24 PM EDT Natalia Evans MD LAB BLOOD ORDERABLES Final R esult Performing Organization Address City/[facility] Co de Phone Number HEALTHCARE LAB [address] [place] [address] * Lactic acid, venous (10/14/2024 4:15 PM EDT) Lactate, Venous, Whole Blood 1.4 0.5 - 2.2 mmol/L LAB HEMATOLOGY METHOD 10/14/2024 4:25 PM EDT [facility] Blood Venous blood specimen / Unknown Venipuncture / Unknown 10/14/2024 4:15 PM EDT 10/14/2024 4:23 PM EDT us Isaac M Herman MD LAB BLOOD ORDERABLES Final Resul t Performing Organization Address [facility] de Phone Number [facility] [address] [place] [address] * (ABNORMAL) Procalcitonin (10/14/2024 4:15 PM EDT) Procalcitonin, Plasma 0.13(H) <0.09 ng/mL 10/14/2024 4:52 PM EDT [facility] Blood Venous blood specimen / Unknown Venipuncture / Unknown 10/14/2024 4:15 PM EDT 10/14/2024 4:24 PM EDT Narrative [facility] - 10/14/2024 4:52 PM EDT Procalcitonin concentrations in healthy individuals are <0.09 ng/mL. Published data support the following interpretive risk assessment: An elevated procalcitonin result does not always indicate sepsis. Various non-infectious conditions are known to increase procalcitonin. Results should be considered in the context of clinical symptoms and other laboratory tests. Procalcitonin >2.0 ng/mL: Concentrations >2.0 ng/mL on the first day of ICU admission are associated with a higher risk of progression to severe sepsis and/or septic shock. The change in PCT over time may help predict 28 day mortality risk. Please consult www.psjjuq-izk-saplbaqcij[employer] for more information. Test performed at [facility]. Isaac Sutton MD LAB BLOOD ORDERABLES Final Resul t Performing Organization Address [facility] Co de Phone Number [facility] [address] [place] [address] * Blood Culture (Aerobic/Anaerobet Set) (10/14/2024 4:15 PM EDT) Only the most recent of2 resultswithin the time period is included. Pathologist [facility] Culture No growth at day 5 10/19/2024 7:[address] [facility] Blood Structure of part of left upper limb / Unknown Venipuncture / Unknown 10/14/2024 4:15 PM EDT 10/14/2024 4:[address] [facility] - 10/19/2024 7:02 PM EDT Low blood volume submitted, results may be compromised Isaac Sutton MD LAB MICROBIOLOGY - GENERAL ORDER CHELY Final Result Performing Organization Address City/[facility] Co de Phone Number [facility] [address] [place] [address] * Phosphorus (10/14/2024 4:15 PM EDT) Phosphorus, Plasma 2.8 2.5 - 4.5 mg/dL 10/14/2024 4:47 PM EDT [facility] Blood Venous blood specimen / Unknown Venipuncture / Unknown 10/14/2024 4:15 PM EDT 10/14/2024 4:24 PM EDT Isaac Sutton MD LAB BLOOD ORDERABLES Final Resul t Performing Organization Address [facility] de Phone Number [facility] [address] [place] [address] * Hemoglobin A1c (10/14/2024 4:15 PM EDT) Hemoglobin A1c 5.5 <5.7 % 10/14/2024 10:[address] [facility] Blood Venous blood specimen / Unknown Venipuncture / Unknown 10/14/2024 4:15 PM EDT 10/14/2024 4:[address] [facility] - 10/14/2024 10:56 PM EDT HA1C Interpretive Data: Diagnosis of Diabetes: Diabetic > or = 6.5% Pre-diabetic 5.7 to 6.4% Non-diabetic < or = 5.6% Glycemic Targets for Type I and Type II Diabetics: Non- Adults <7.0% Adults <6.0% Children and Adolescents <7.5% Source: [place] [employer]. Standards of medical care in diabetes,2017. Diabetes Care.2017:40 (suppl 1):S1-S135. us Natalia Evans MD LAB BLOOD ORDERABLES Final R esult [facility] [address] [place] [address] * (ABNORMAL) Lipid panel (10/14/2024 4:15 PM EDT) Cholesterol, Plasma 311(H) <200 mg/dL 10/14/2024 4:47 PM EDT [facility]ARE [facility] Comment: Cholesterol Reference Range (age >17 years): Desirable <200 mg/dL Borderline 200 to 239 mg/dL Undesirable >239 mg/dL HDL 41(L) >=50 mg/dL 10/14/2024 4:47 PM EDT [facility] Comment: HDL Cholesterol Reference Ranges (age >17 years): Female, acceptable > or = 50 mg/dL Male, acceptable > or = 40 mg/dL Triglycerides, Plasma 95 <150 mg/dL 10/14/2024 4:47 PM EDT [facility] Comment: Triglyceride Reference Range (age >17 years): Desirable: <150 mg/dL Borderline high: 150 to 199 mg/dL High: 200 to 499 mg/dL Very high: >499 mg/dL Increased risk of pancreatitis: >1000 mg/dL Cholesterol/HDL Ratio 8 10/14/2024 4:47 PM EDT [facility] LDL, Calculated 254(H) <100 mg/dL 4:47 PM EDT [facility] Comment: LDL Cholesterol Reference Range (age >17 years): Optimal: <100 mg/dL Near or above optimal: 100 - 129 mg/dL Borderline high: 130 - 159 mg/dL High: 160 - 189 mg/dL Very high: >189 mg/dL LDL Cholesterol Reference Range (age <18 years): Desirable: <110 mg/dL Borderline: 110 - 129 mg/dL Undesirable: >130 mg/dL LDL Cholesterol is calculated using the Sinclair/NIH equation. Fasting greater than or equal to 12 hours? No 10/14/2024 4:47 PM EDT [facility] Blood Venous blood specimen / Unknown Venipuncture / Unknown 10/14/2024 4:15 PM EDT 10/14/2024 4:24 PM EDT Natalia Evans MD LAB BLOOD ORDERABLES Final R esult [facility] [address] [place] [address] * XR Chest 1 View (10/14/2024 3:35 PM EDT) Anatomical Region Laterality Modality Chest Digital Radiogra phy Impressions 10/14/2024 4:00 PM EDT No acute cardiopulmonary findings. CRITICAL RESULT: No. COMMUNICATION: Per this written report. By electronically signing this report, I, the attending physician, attest that I have personally reviewed the images/data for the above examination(s) and agree with the final edited report. Drafted by Osmar Lebron MD on 10/14/2024 3:39 PM Final report signed by Epi Nation MD on 10/14/2024 4:00 PM Narrative 10/14/2024 4:00 PM EDT CLINICAL INDICATION: fever TECHNIQUE: XR CHEST 1 VIEW COMPARISON: None. FINDINGS: Cardiac silhouette and mediastinal contours within normal limits. No pleural effusions. No pneumothorax. No focal consolidation seen. No airspace or interstitial disease. Procedure Note Epi Nation MD - 10/14/2024 CLINICAL INDICATION: fever TECHNIQUE: XR CHEST 1 VIEW COMPARISON: None. FINDINGS: Cardiac silhouette and mediastinal contours within normal limits. Nopleural effusions. No pneumothorax. No focal consolidation seen. Noairspace or interstitial disease. IMPRESSION: No acute cardiopulmonary findings. CRITICAL RESULT: No. COMMUNICATION: Per this written report. By electronically signing this report, I, the attending physician, attestthat I have personally reviewed the images/data for the aboveexamination(s) and agree with the final edited report. Drafted by Osmar Lebron MD on 10/14/2024 3:39 PM Final report signed by Epi Nation MD on 10/14/2024 4:00 PM us Natalia Evans MD IMG XR PROCEDURES Final Resu lt * CT Lumbar Spine wo IV Contrast (10/14/2024 6:14 AM EDT) Anatomical Region Laterality Modality Spine, L-spine Computed Tomogra phy Impressions 10/14/2024 6:54 AM EDT Multilevel degenerative changes as described above. No acute fracture or acute malalignment of the lumbar spine. CRITICAL RESULT: No. COMMUNICATION: Per this written report. Preliminary report signed by Kartik Beckett MD on 10/14/2024 6:50 AM By electronically signing this report, I, the attending physician, attest that I have personally reviewed the images/data for the above examination(s) and agree with the final edited report. Drafted by Kartik Beckett MD on 10/14/2024 6:46 AM Final report signed by Parrish Angel MD on 10/14/2024 6:54 AM Narrative 10/14/2024 6:54 AM EDT CLINICAL INDICATION: Low back pain, increased fracture risk TECHNIQUE: Imaging of the lumbar spine was performed, using spiral technique, without contrast administration. Reformatted images in the coronal and sagittal planes were generated from the axial data set to facilitate diagnostic accuracy and/or surgical planning. Total DLP (Dose-Length Product): 597.81 mGy.cm. Please note: The reported value represents the total of one or more individual components during the CT acquisition on this date and at this time, and as such, the same value may appear in more than one CT report depending on the interpreting/reporting physicians. COMPARISON: Outside CT of the abdomen and pelvis from 10/14/2024 FINDINGS: Vertebrae: Status post L4-5 posterior fusion with pedicle screws present bilaterally and disc spacer in the disc space. No evidence of hardware failure or loosening. There are otherwise moderate degenerative changes of the lumbar spine including disc space narrowing with endplate sclerosis, Schmorl's node formation, and osteophytosis as well as multilevel facet arthropathy. No acute fracture. Alignment: Mild dextrocurvature of the lumbar spine. Grade 1 anterolisthesis of L3 on L4 is likely secondary to degenerative changes. Paraspinal Soft Tissues: No paraspinal hematoma. Procedure Note Parrish Angel MD - 10/14/2024 CLINICAL INDICATION: Low back pain, increased fracture risk TECHNIQUE: Imaging of the lumbar spine was performed, using spiral technique, withoutcontrast administration. Reformatted images in the coronal and sagittalplanes were generated from the axial data set to facilitate diagnosticaccuracy and/or surgical planning. Total DLP (Dose-Length Product): 597.81 mGy.cm. Please note: The reportedvalue represents the total of one or more individual components during theCT acquisition on this date and at this time, and as such, the same valuemay appear in more than one CT report depending on theinterpreting/reporting physicians. COMPARISON: Outside CT of the abdomen and pelvis from 10/14/2024 FINDINGS: Vertebrae: Status post L4-5 posterior fusion with pedicle screws presentbilaterally and disc spacer in the disc space. No evidence of hardwarefailure or loosening. There are otherwise moderate degenerative changes ofthe lumbar spine including disc space narrowing with endplate sclerosis,Schmorl's node formation, and osteophytosis as well as multilevel facetarthropathy. No acute fracture. Alignment: Mild dextrocurvature of the lumbar spine. Grade 1anterolisthesis of L3 on L4 is likely secondary to degenerative changes. Paraspinal Soft Tissues: No paraspinal hematoma. IMPRESSION: Multilevel degenerative changes as described above. No acute fracture or acute malalignment of the lumbar spine. CRITICAL RESULT: No. COMMUNICATION: Per this written report. Preliminary report signed by Kartik Beckett MD on 10/14/2024 6:50 AM By electronically signing this report, I, the attending physician, attestthat I have personally reviewed the images/data for the aboveexamination(s) and agree with the final edited report. Drafted by Kartik Beckett MD on 10/14/2024 6:46 AM Final report signed by Parrish Angel MD on 10/14/2024 6:54 AM us Damaso Bustos MD IMG CT PROCEDURES Final Res ult * CT OUTSIDE IMAGES (10/14/2024 2:04 AM EDT) Anatomical Region Laterality Modality Computed Tomogra phy 10/14/2024 2:04 AM EDT us External Provider IMG CT PROCEDURES Final Result from Last 3 Months Insurance [facility] MEDICARE Advance Directives * Full Code (Latest Code Status on File) Date Activated Date Inactivated Comments 10/14/2024 2:20 PM 10/17/2024 4:20 PM Question Answer Comments I have reviewed the capacity from the link above and, if needed, have updated to appropriate status: Yes Care Teams Animal Husbandry Manager Relationship Specialty Start Date End Date System, Provider Not In, [place] [address] PCP - General Family Medicine 10/14/24
--- OUTSIDE RECORDS SUMMARY | 2024-10-24 19:31 | XMS_ITS | CCD ---
Author Name Interface, [id number] Address [address] [place] [address] [facility] [employer] Address [address] [place] [address] Care Team Providers Care Electrocardiographic Technician Name Role Phone Akash WATKINS, Nia Unavailable Unavailable Reason for Visit Social History
--- OUTSIDE RECORDS SUMMARY | 2024-10-24 19:31 | XMS_ITS | Encounter Summary ---
Author Organization Healthcare Address [address] [place] [address] Care Team Providers Care Utilization Reviewer Name Role Phone System, Provider Not In MD Primary Care Provider Unavailable Encounter Details Date Type Department Care Team (Latest Contact Info) Description 10/14/2024 Travel Social History Tobacco Use Types Packs/Day [...] any time in the past 12 m [facility], were you homeless or living in a jail (including now)? No 10/15/2024 [facility] Utilities Answer Date Recorded In the past 12 months has e [employer]osp[employer], gas, oil, or water company threatened to [...] Date of Assessment Author No Risk Indicated 10/14/2024 8:00 PM EDT Yasmany Benson RN * Question Answer Date of Assessment Author 1. Wish to be (Past 1 Month) No 10/14/2024 8:00 PM EDT Yasmany Benson RN 2. Non-Specific Active Suici [place] Thoughts (Past 1 Month) No 10/14/2024 8:00 PM EDT Nelson Benson RN 6. Suicidal Behavior (Lifetime) No 8:00 PM EDT Yasmany Benson RN documented as of this encounter Plan of Treatment Not on file documented as of this encounter Visit Diagnoses Not on filedocumented in this encounter Additional Health Concerns Assessment Noted Time A Body Mass Index follow-up plan has been documented for the patient 10/17/2024 1:17 PM EDT documented as of this encounter Care Teams Utilization Reviewer Relationship Specialty Start Date End Date System, Provider Not In, [place] [address] PCP - General Family Medicine 10/14/24 documented as of this encounter
[2024-10-24 19:39] VITALS: BP 114/96; PULSE 80; RESP 16; TEMP 36.6; O2SAT 99; BMI 32.9
[2024-10-24 20:19] LABS: Hematocrit 36.5 % (37.0-47.0); Hemoglobin 12.5 g/dL (12.2-16.2); Immature Granulocytes % 0.5 %; Mean Corpuscular HGB Conc 34.2 g/dL (31.8-35.4); Mean Corpuscular Hemoglobin 30.4 pg (27.0-31.2); Mean Corpuscular Volume 88.8 fl (81-99); Nucleated Red Blood Cells % 0 %; Platelet Count 261 K/mm3 (142-424); Red Blood Count 4.11 M/mm3 (4.20-5.40); Red Cell Distribution Width-SD 48.2 fL; White Blood Count 16.0 K/mm3 (4.8-10.8)
[2024-10-24 20:24] LABS: Albumin Level 4.3 g/dl (3.5-5.0); Chloride 100 mmol/L (98-107)
[2024-10-24 20:25] LABS: Potassium 4.3 mmoL/L (3.5-5.1); Sodium 137 mmol/L (136-145)
[2024-10-24 20:27] LABS: Alanine Aminotransferase 25 U/L (12-78); Anion Gap 15.3 mEq/L (5-15); Aspartate Amino Transferase 37 U/L (14-36); Blood Urea Nitrogen 18 mg/dl (7-17); Carbon Dioxide 26 mmol/L (22.0-30.0); Creatinine Clearance Estimated 71 mL/min (50-200); Creatinine,Serum 0.60 mg/dl (0.52-1.04); Estimated Glomerular Filt Rate 98 ml/min (>60); GFR (African American) 119 ML/MIN (>60); Lipase 101 U/L (23-300)
[2024-10-24 20:28] LABS: Albumin/Globulin Ratio 1.3 (1.1-1.8); Alkaline Phosphatase 130 U/L (38-126); Bilirubin,Total 1.8 mg/dl (0.2-1.3); Calcium 10.2 mg/dl (8.4-10.2); Globulin 3.4 g/dL (1.3-3.2); Glucose 125 mg/dl (74-100); Total Protein,Serum 7.7 g/dl (6.3-8.2)
[2024-10-24 20:31] VITALS: BP 151/114; PULSE 80; RESP 20; O2SAT 98
[2024-10-24] MEDS: HYDROMORPHONE 2MG/ML SYRINGE 1 MG IV ×2 (20:33→23:01)
[2024-10-24 20:40] LABS: Troponin I < 0.01 ng/ml (0.00-0.034)
--- NOTE | 2024-10-24 20:51 | CT_ITS ---
PROCEDURE INFORMATION: Exam: CT Abdomen And Pelvis With Contrast Exam date and time: 10/24/2024 10:26 PM Age: 74 years old Clinical indication: Abdominal pain; Additional info: Abdominal pain, HX of pancreatic cancer w/ stents TECHNIQUE: Imaging protocol: Computed tomography of the abdomen and pelvis with contrast. Radiation optimization: All CT scans at this facility use at least one of these dose optimization techniques: automated exposure control; mA and/or kV adjustment per patient size (includes targeted exams where dose is matched to clinical indication); or iterative reconstruction. Contrast material: ISOVUE; Contrast volume: 75 ml; Contrast route: IV; COMPARISON: CT ABDOMEN PELVIS W CON 10/14/2024 2:04 AM FINDINGS: Liver: No mass. Gallbladder and biliary ducts: Similar intrahepatic biliary ductal dilatation. No mass. Stable extrahepatic biliary stent. Pancreas: Poorly defined pancreatic head mass measuring 2.6 x 2.1 cm with proximal dilatation of pancreatic duct and parenchymal atrophy. Spleen: Unremarkable. No splenomegaly. Adrenal glands: Unremarkable. No mass. Kidneys and ureters: No nephroureterolithiasis or hydroureter. Stomach and bowel: Multiple loops of dilated fluid-filled small bowel with relative transition to decompressed bowel loops in right lower quadrant and pelvis. Appendix: No evidence of appendicitis. Intraperitoneal space: Unremarkable. No free air. No significant fluid collection. Vasculature: Atherosclerotic calcification of aortoiliac arteries without aneurysm. Lymph nodes: Unremarkable. No enlarged lymph nodes. Urinary bladder: Unremarkable as visualized. Reproductive: Unremarkable as visualized. Bones/joints: Similar ORIF and postoperative changes of L4/5 levels. No acute findings identified. Soft tissues: Unremarkable. IMPRESSION: 1. High-grade small bowel obstruction with transition suspected in right lower quadrant/pelvis. 2. Similar pancreatic head mass with proximal pancreatic ductal dilatation and parenchymal atrophy. 3. Similar biliary duct stent placement with likely postprocedure related intrahepatic ductal dilatation.
[2024-10-24 21:00] VITALS: BP 140/66; PULSE 75; RESP 13; O2SAT 98
[2024-10-24 21:31] VITALS: BP 136/71; PULSE 81; RESP 16; O2SAT 95
[2024-10-24 22:00] VITALS: BP 137/62; PULSE 76; RESP 12; O2SAT 96
--- NOTE | 2024-10-24 22:18 | PC.NURSE ---
PT to CT scanner via stretcher
--- NOTE | 2024-10-24 22:21 | HMH.EDGENADL ---
Discharge Plan Disposition Patient Disposition: Xfer Other Condition: Fair Prescriptions Prescriptions: No Action Nexlizet 180-10 mg tablet 1 tab PO DAILY Qty: 90 1RF labetalol 100 mg tablet 100 mg PO BID 90 Days Qty: 180 2RF nitrofurantoin monohyd/m-cryst [Macrobid] 100 mg capsule 100 mg PO Q12H 10 Days Qty: 20 0RF Rx Instructions: must administer with a meal/food Referrals Follow up/Referrals: Provider,Referral, MD [Primary Care Provider, Medical] - See instructions Clinical Impressions Clinical Impression: Complete obstruction of small intestine, Mass of head of pancreas Instructions Patient Instructions: DI for Acute Abdominal Pain Print Language Print Language: Bengali Discharge ED Provider: Dylan Oconnor Adult HPI General Chief complaint: Abdominal Pain Stated complaint: abdominal pain Time Seen by Provider: 10/24/24 19:50 Mode of Arrival: Wheelchair Source of Information: Patient and Parent(s) Description of Symptoms (Recalled from ER Triage Doc. by RN): Reports being diagnosed with pancreatic cancer approx 2 weeks ago. Has been in and out of multiple hospitals over the past two weeks. States she was discharge from [facility] two days ago. Patient arrived with IV still in left AC. Complaint of severe lower abdomen pain. History of Present Illness HPI narrative: This is a 74-year-old female patient, with past medical history of hypertension, hyperlipidemia, and recently diagnosed pancreatic cancer, who is presenting to the emergency department today for evaluation of abdominal pain and distention with nausea and vomiting. Patient states that she has not passed a bowel movement since last night. She is also not passing flatulence. She has not had any fevers or chills. No blood in her vomit or bile in her vomit. The patient tells me that she lives in [place] and last [place] when [place] developed abdominal pain with jaundice. She states that she left the airport in [place] and found a hospital called [facility] where she was diagnosed with pancreatic cancer. Apparently there is a top pancreatic surgeon in the world that works at this hospital and he has performed extensive surgical planning for a Whipple with G-tube placement for the patient. Related Data Previous Rx's ?Medication ?Instructions ?Recorded bempedoic acid 180 mg-ezetimibe 10 1 tab PO DAILY #90 tabs 09/04/25 mg tablet (Nexlizet) labetalol 100 mg tablet 100 mg PO BID 90 days #180 tabs 09/04/24 nitrofurantoin 100 mg PO Q12H 10 days #20 caps 09/04/24 monohydrate/macrocrystals 100 mg capsule (Macrobid) Allergies Allergy/AdvReac Type Severity Reaction Status Date / Time doxycycline Allergy Severe Anaphylaxis Verified 10/13/24 22:27 morphine Allergy Unknown Verified 10/24/24 19:45 allergy reaction [id number] Reductase AdvReac Intermediate Cramping Verified 10/13/24 22:27 Inhibitor of the Muscles [facility] Disclaimer: The information contained in this section may have been updated after the patient was seen, as this information can be updated by other users. Medical History (Updated 10/25/24 @ 03:05 by Dylan Oconnor DO) Pancreatic cancer No significant family history History of ganglion cyst Hyperlipidemia Cancer, uterine Hypertension Surgical History (Updated 09/04/24 @ 10:46 by Melani Reyez) History of hysterectomy Social History (Updated 09/04/24 @ 10:47 by Melani Reyez) Smoking Status: Never smoker second hand exposure: No alcohol intake: never substance use type: denies use current occupational status: employed Travel in the last 8 weeks?: None household members: family and children housing: house marital status: single Have you lived/traveled outside US in past 30 days?: No Contact w/someone who lives/traveled outside US past 30 days?: No Exposure to someone with infectious disease in past 14 days?: No Do you have a fever (greater than 100.4 F or 38 C)?: No Have you tested positive for COVID-19?: No Exposed to someone with COVID-19 in past 14 days?: No Do you have a sore throat?: No Do you have a cough?: No Do you have any weakness?: No Do you have any diarrhea?: No Are you experiencing any unusual bleeding?: No Do you have any muscle aches/pain?: No Do you have any abdominal pain?: No Are you experiencing loss of taste or smell?: No Other Medical History Have you received the Pneumonia Vaccine: No ROS Obtained: Yes Systems reviewed as appropriate & no additional complaints except as documented Physical Exam General General appearance: other (See MDM) Respiratory Respiratory exam: Present other (See MDM) Cardiovascular Cardiovascular exam: Present other (See MDM) Neurological Exam Neurological exam: Present other (See MDM) Medical Decision Making Medical Records Medical records reviewed: Yes I reviewed the patient's medical records. Screening: Per USPSTF and CDC recommendations, given the prevalence of disease in our region, it is our hospital?s policy to screen for HIV and viral Hepatitis for all patients aged 18 and over and those with ongoing risk factors. Jea Inquiry Pt receiving controlled substance: No Jae was queried for this patient: No Vital Signs: 10/24/24 19:39 10/24/24 20:31 10/24/24 21:00 Temperature 97.9 F Temperature Source Oral Pulse Rate 80 75 Pulse Rate [Radial] 80 Respiratory Rate 16 20 13 Blood Pressure 151/114 H 140/66 Blood Pressure [Right Arm] 114/96 H Blood Pressure Mean [Right Arm] 102 Blood Pressure Source [Right Arm] Automatic Cuff Blood Pressure Position [Right Arm] Sitting 02 Sat by Pulse Oximetry 99 98 98 Oxygen Delivery Method Room Air 10/24/24 21:31 10/24/24 22:00 Temperature Temperature Source Pulse Rate 81 76 Pulse Rate [Radial] Respiratory Rate 16 12 Blood Pressure 136/71 137/62 Blood Pressure [Right Arm] Blood Pressure Mean [Right Arm] Blood Pressure Source [Right Arm] Blood Pressure Position [Right Arm] 02 Sat by Pulse Oximetry 95 96 Oxygen Delivery Method Lab Data Lab Results 10/24/24 19:36: WBC 16.0 H, RBC 4.11 L, Hgb 12.5, Hct 36.5 L, MCV 88.8, MCH 30.4, MCHC 34.2, RDW 14.7, Plt Count 261, MPV 11.5 H, Neut % (Auto) 83.2 H, Lymph % (Auto) 11.3, Foster % (Auto) 4.1, Eos % (Auto) 0.6, Baso % (Auto) 0.3, Neut # (Auto) 13.3 H, Lymph # (Auto) 1.8, Foster # (Auto) 0.7, Eos # (Auto) 0.1, Baso # (Auto) 0.0, Sodium 137, Potassium 4.3, Chloride 100, Carbon Dioxide 26, Anion Gap 15.3 H, BUN 18 H, Creatinine 0.60, Estimated Creat Clear 71, Estimated GFR 98, Est GFR ( Amer) 119, Glucose 125 H, Calcium 10.2, Total Bilirubin 1.8 H, AST 37 H, ALT 25, Alkaline Phosphatase 130 H, Troponin I < 0.01, Total Protein 7.7, Albumin 4.3, Globulin 3.4 H, Albumin/Globulin Ratio 1.3, Lipase 101 10/24/24 20:17: Lactate 1.3 10/24/24 23:15: Troponin I < 0.01 10/25/24 00:54: Urine Color Yellow, Urine Appearance Clear, Urine pH 7.0, Ur Specific Boswell 1.010, Urine Protein Negative, Urine Glucose (UA) Negative, Urine Ketones Trace, Urine Blood Negative, Urine Nitrate Negative, Urine Bilirubin Negative, Urine Urobilinogen 0.2, Ur Leukocyte Esterase Negative, Urine RBC None, Urine WBC 3-5, Ur Squamous Epith Cells 5-10, Urine Bacteria Trace 10/24/24 19:36 10/24/24 19:36 Orders (Tests/Meds): ED MEDICATIONS Generic Name Dose Route Start Last Admin Trade Name Raya PRN Reason Stop Dose Admin Sodium Chloride 10 ml 10/24/24 22:26 10/24/24 22:26 Sodium Chloride 0.9% 10ml Syr (Rad Only) IV 11/23/24 22:25 10 ml NEEDED PRN Administration Maintain IV Site Discontinued Medications Generic Name Dose Route Start Last Admin Trade Name Raya PRN Reason Stop Dose Admin Hydromorphone HCl 1 mg 10/24/24 20:30 10/24/24 20:33 Hydromorphone 2mg/Ml Syringe IV 10/24/24 20:31 1 mg ONCE ONE Administration Hydromorphone HCl 1 mg 10/24/24 22:51 10/24/24 23:01 Hydromorphone 2mg/Ml Syringe IV 10/24/24 22:52 1 mg ONCE ONE Administration Lactated Ringer's 1,000 mls @ 999 mls/hr 10/24/24 22:51 10/25/24 00:34 Lactated Ringer's 1000 Ml Bag IV 10/24/24 23:51 Infused .Q1H1M ONE Infusion Iopamidol 75 ml 10/24/24 22:26 10/24/24 22:26 Iopamidol-370 (76%);100ml Bottle IV 10/24/24 22:27 75 ml ONCE ONE Administration Ondansetron HCl 4 mg 10/24/24 23:55 10/24/24 23:58 Ondansetron 4mg/2ml Vial IV 10/24/24 23:56 4 mg ONCE ONE Administration ORDERS Category Date Time Status CT abdomen pelvis w con Stat Cat Scan 10/24/24 20:51 Completed Chest XR -- portable [XR chest portable] Stat Exams 10/25/24 00:53 Completed Complete Blood Count Auto Diff Stat Lab 10/24/24 19:36 Completed Comprehensive Metabolic Panel Stat Lab 10/24/24 19:36 Completed Lactic Acid Stat Lab 10/24/24 20:17 Completed Lipase Stat Lab 10/24/24 19:36 Completed Troponin I Q3H Lab 10/24/24 23:15 Completed Troponin I Stat Lab 10/24/24 19:36 Completed Urinalysis and Microscopic Stat Lab 10/25/24 00:54 Completed Urine Culture Stat Micro 10/25/24 00:54 Received Medical Decision Narrative: In summary, this is a 74-year-old female patient who is presenting to the emergency department today for evaluation of abdominal pain, nausea, vomiting, and obstipation. Comorbidities include a past medical history of hypertension, hyperlipidemia, and pancreatic cancer that was diagnosed last month. Patient tells me that her bilirubin has improved from 18 back down below 2. Her only surgical history is a and hysterectomy. On initial evaluation of the patient they were nontoxic in appearance. They are hemodynamically stable, saturating well room air, and are neurologically intact. On physical examination of the patient she is appropriately alert and oriented with a GCS of 15. Heart and lungs are clear to auscultation bilaterally. She has abdominal distention noted on exam as well as significant abdominal tenderness without rebound or guarding. She does appear to be in a significant amount of pain. Differential diagnosis includes small bowel obstruction, volvulus, intra-abdominal abscess, pancreatic metastasis, among others. Workup was initiated with hematologic labs as well as a CT scan of the abdomen and pelvis. Pain has been controlled with multiple doses of Dilaudid secondary to intractable pain Labs were personally interpreted by me and demonstrated leukocytosis of 16 with no significant electrolyte derangements or acute kidney injury. Bilirubin is 1.8 which per the patient's report has improved from 18 prior. Troponin and delta troponin are undetectably low. No evidence of urinary tract infection on urinalysis. CT scan of the abdomen and pelvis was personally turbid by me and demonstrates very dilated small bowel loops. Official radiology read is in agreement states that this is indicative of a small bowel obstruction with a stable pancreatic head mass with a transition point present in the right lower quadrant. Given these findings we have anchored a nasogastric tube and have connected this to suction. Our surgeons will not keep this patient here or offer any operation given that she is medically complex with a pancreatic head mass and now with a bowel obstruction. Given these findings I did have an interactive discussion with the [facility] who declined to accept the patient for transfer given that she has an established surgical oncologist through [facility] in [place]. I did have an interactive discussion with [facility] and they were unable to send a transport for the patient. I have also been unable to get transport across to [facility] lines to deliver the patient to [facility]. After further discussion with the patient she states that if she were to need any kind of surgery with surgical oncology that she would only be willing to have this done at [facility]. Therefore I did have an interactive discussion with the [facility] on the phone and spoke with Dr. Persaud of the surgical oncology service who stated that he would evaluate the patient in the emergency department if we can secure a a transferring physician. I did discuss this case with Dr. Stratton in the emergency department at the [facility] who graciously agreed to except this patient for transfer to their emergency department for further management of her small bowel obstruction. Patient was transferred via air ambulance to the [facility] in stable condition. Critical Care Critical Care Time Critical Care Time: No
[2024-10-24] MEDS: IOPAMIDOL-370 (76%);100ML BOTTLE 75 ML IV (22:26)
[2024-10-24] MEDS: SODIUM CHLORIDE 0.9% 10ML SYR (RAD ONLY) 10 ML IV (22:26)
[2024-10-24] MEDS: LACTATED RINGERS 1000ML 1,000 ML 999 ML IV (23:01)
[2024-10-24 23:57] LABS: Troponin I < 0.01 ng/ml (0.00-0.034)
[2024-10-24] MEDS: ONDANSETRON 4MG/2ML VIAL 4 MG IV (23:58)
--- NOTE | 2024-10-25 00:53 | XR_ITS ---
PROCEDURE INFORMATION: Exam: XR Chest Exam date and time: 10/25/2024 12:54 AM Age: 74 years old Clinical indication: Device placement; Ng tube; Additional info: Ng placement TECHNIQUE: Imaging protocol: Radiologic exam of the chest. Views: 1 view. COMPARISON: CT ABDOMEN PELVIS W CON 10/24/2024 10:26 PM FINDINGS: Tubes, catheters and devices: Nasogastric tube tip projected over left upper quadrant. Lungs: Unremarkable. No consolidation. Pleural spaces: Unremarkable. No pleural effusion. No pneumothorax. Heart/Mediastinum: Unremarkable. No cardiomegaly. Bones/joints: Unremarkable. IMPRESSION: Nasogastric tube grossly in place.
[2024-10-25 00:58] LABS: Microscopic, Urine URINE MICROSCOPIC (MICROSCOPIC)
[2024-10-25 01:04] LABS: Bilirubin,Urine Negative (Negative); Color,Urine YELLOW (Yellow); Glucose,Urine (UA) Negative (Negative); Ketones,Urine TRACE (Negative); Leukocyte Esterase,Urine Negative (Negative); PH,Urine 7.0 (5.0-8.5); Protein,Urine Negative (Negative); Specific Gravity, Urine 1.010 (1.005-1.030); Urobilinogen,Urine 0.2 EU/dl (0.2)
[2024-10-25 01:43] LABS: Bacteria,Urine Trace /lpf
[2024-10-25 03:13] VITALS: BP 130/57; PULSE 81; RESP 16; TEMP 37; O2SAT 91
--- NOTE | 2024-10-25 03:13 | PC.NURSE ---
Report called to ed to FREDA Cartagena
[2024-10-25] MEDS: HYDROMORPHONE 2MG/ML SYRINGE 0.5 MG IV (03:15)
== END 2024-10-25 03:15 | disposition other institution (70) ==
PROVIDERS: Emergency Provider Student in an Organized Health Care Education/Training Program
DX: K56.601 Complete intestinal obstruction, unspecified as to cause (principal); K86.89 Other specified diseases of pancreas; I10 Essential (primary) hypertension
CPT/HCPCS: 71045; 74177; 80053; 81001; 83605; 83690; 84484; 85025; 87086; 87088; 87186; 96361; 96374; 96375; 96376; 99285; J1171; J2405; J7120; Q9967